=== PATIENT | male | born 1950 | race Caucasian/White ===

== ENCOUNTER 2016-06-14 13:22 | Emergency (ER) | payer MEDICARE, OTHER ==
[2016-06-14 13:31] VITALS: PULSE 73; RESP 16
--- NOTE | 2016-06-14 14:17 | ED ---
General Adult HPI - General Chief complaint: Chest Pain Stated complaint: Chest Pain Time Seen by Provider: 06/14/16 13:52 Source: patient, family, RN notes reviewed Mode of arrival: wheelchair Limitations: no limitations - History of Present Illness Initial comments: Chief complaint and history of present illness a 66-year-old male here because she's had discomfort on again off again to his left tricep area. Patient reports for the past 3 weeks he's had short lived discomfort on the left pectoralis muscle he states when he takes a deep breath or twists and turns and stretches out the pain goes away and stays away from hours. Denies any direct injury. He came in today because he does have a little discomfort to the left tricep area. On-again off-again a dull ache. No associated sweats or nausea with these occurrences. Patient denies any previous heart problems. - Related Data Home Medications Medication Instructions Recorded Confirmed Dipyridamole-Aspirin 200-25 mg 1 cap PO BID 06/14/16 06/14/16 [Aggrenox] Omeprazole 20 mg PO DAILY 06/14/16 06/14/16 Allergies Allergy/AdvReac Type Severity Reaction Status Date / Time No Known Allergies Allergy Verified 06/14/16 14:22 Review of Systems ROS Statement: Those systems with pertinent positive or pertinent negative responses have been documented in the HPI. Review of systems no visual acuity changes no headache no stiff neck no chest pain at this time no arm pain no discomfort no shortness of breath no neuro deficits no GI/ problems. All systems were otherwise reviewed were negative. Past medical problems significant for GERD, hyperlipidemia. Surgeries tonsils as a child. Family history sister had MS and a brother had colon cancer. The patient was told he needs colonoscopies which she is getting already. Patient denies any ALLERGIES he quit smoking a year ago quit alcohol 16 years ago. ROS Other: All systems not noted in ROS Statement are negative. Past Medical History Past Medical History: GERD/Reflux, Hyperlipidemia History of Any Multi-Drug Resistant Organisms: None Reported Past Surgical History: Heart Catheterization Additional Past Surgical History / Comment(s): THROAT POLYPS REMOVED Past Psychological History: Anxiety Smoking Status: Former smoker Past Alcohol Use History: None Reported Past Drug Use History: None Reported General Exam - General Exam Comments Initial Comments: General: The patient is awake and alert, in no distress, and does not appear acutely ill. No complaints this time. Vital signs show temperature 98.1 pulse 73 her story rate 16 pulse ox 99% room air blood pressure 137/70, elevated systolic noted patient will be following up with his family physician in next week. Eye: Pupils are equal, round and reactive to light, extra-ocular movements are intact ; there is normal conjunctiva bilaterally. No signs of icterus. Ears, nose, mouth and throat: There are moist mucous membranes and no oral lesions. Neck: The neck is supple, there is no tenderness , no carotid bruits. Cardiovascular: There is a regular rate and rhythm. No murmur, rub or gallop is appreciated. Respiratory: Lungs are clear to auscultation, respirations are non-labored, breath sounds are equal. No wheezes, stridor, rales, or rhonchi. Gastrointestinal: Soft, non-distended, non-tender abdomen without masses or organomegaly noted. There is no rebound or guarding present. No CVA tenderness. Bowel sounds are unremarkable. Back: There is no tenderness to palpation in the midline. There is no obvious deformity. No rashes noted. Musculoskeletal: Normal ROM, no tenderness, There is no pedal edema. There is no calf tenderness or swelling. Sensation intact. Pulses equal bilaterally 2+. Neurological: CN II-XII intact, There are no obvious motor or sensory deficits. Coordination appears grossly intact. Speech is normal. No focal or lateralizing findings Skin: Skin is warm and dry and no rashes or lesions are noted. He does bruise easily he is on Aggrenox. Limitations: no limitations Course Vital Signs 06/14/16 13:24 Temperature 98.1 F Pulse Rate 73 Respiratory 16 Rate Blood Pressure 137/70 O2 Sat by Pulse 99 Oximetry EKG Findings - EKG Comments: EKG Findings:: EKG was done and reviewed at 1337 showing normal sinus rhythm age undetermined lateral injury. No acute ST elevation no ectopy. Rate 64 AK interval was 132 QRS 108 [address] Claros Medical Decision Making - Medical Decision Making History x-ray is done AP view, portable. And reviewed radiologist his impression is the heart size is stable and there is no evidence for focal infiltrate. Hilar mediastinal structures are within normal limits. Degenerative changes are seen of the dorsal spine. Impression some chronic changes without evidence for acute pulmonary disease. As read by Dr. Fregoli Labs show white count 9.5 hemoglobin 15 hematocrit of 45 and INR 0.9. The patient's potassium is 4.2 with a BUN 13 creatinine 0.98 GFR greater than 60. CK only 65 troponin less than 0.012. Discussed musculoskeletal discomfort such as costochondritis. Patient is physically active. At this time the patient will be discharged home and advised to follow-up with his family physician for stress testing. If he develops any discomfort to return emergency room immediately. - Lab Data Result diagrams: 06/14/16 14:27 06/14/16 14:27 Lab Results 06/14/16 06/14/16 06/14/16 Range/Units 14:27 14:27 14:27 WBC 9.5 (3.8-10.6) k/uL RBC 5.07 (4.30-5.90) m/uL Hgb 15.1 (13.0-17.5) gm/dL Hct 45.8 (39.0-53.0) % MCV 90.3 (80.0-100.0) fL MCH 29.7 (25.0-35.0) pg MCHC 32.9 (31.0-37.0) g/dL RDW 13.0 (11.5-15.5) % Plt Count 159 (150-450) k/uL Neutrophils % 66 % Lymphocytes % 22 % Monocytes % 6 % Eosinophils % 4 % Basophils % 1 % Neutrophils # 6.3 (1.3-7.7) k/uL Lymphocytes # 2.1 (1.0-4.8) k/uL Monocytes # 0.6 (0-1.0) k/uL Eosinophils # 0.4 (0-0.7) k/uL Basophils # 0.1 (0-0.2) k/uL PT (9.0-12.0) sec INR (<1.1) APTT (22.0-30.0) sec Sodium 142 (137-145) mmol/L Potassium 4.2 (3.5-5.1) mmol/L Chloride 101 (98-107) mmol/L Carbon Dioxide 31 H (22-30) mmol/L Anion Gap 10 mmol/L BUN 13 (9-20) mg/dL Creatinine 0.98 (0.66-1.25) mg/dL Est GFR (MDRD) Af Amer >60 (>60 ml/min/1.73 sqM) Est GFR (MDRD) Non-Af >60 (>60 ml/min/1.73 sqM) Glucose 77 (74-99) mg/dL Calcium 9.4 (8.4-10.2) mg/dL Magnesium 2.1 (1.6-2.3) mg/dL Total Bilirubin 0.4 (0.2-1.3) mg/dL AST 14 L (17-59) U/L ALT 28 (21-72) U/L Alkaline Phosphatase 58 (38-126) U/L Total Creatine Kinase 65 (55-170) U/L CK-MB (CK-2) 0.8 (0.0-2.4) ng/mL CK-MB (CK-2) Rel Index 1.2 Troponin I <0.012 (0.000-0.034) ng/mL Total Protein 6.9 (6.3-8.2) g/dL Albumin 4.4 (3.5-5.0) g/dL 06/14/16 Range/Units 14:27 WBC (3.8-10.6) k/uL RBC (4.30-5.90) m/uL Hgb (13.0-17.5) gm/dL Hct (39.0-53.0) % MCV (80.0-100.0) fL MCH (25.0-35.0) pg MCHC (31.0-37.0) g/dL RDW (11.5-15.5) % Plt Count (150-450) k/uL Neutrophils % % Lymphocytes % % Monocytes % % Eosinophils % % Basophils % % Neutrophils # (1.3-7.7) k/uL Lymphocytes # (1.0-4.8) k/uL Monocytes # (0-1.0) k/uL Eosinophils # (0-0.7) k/uL Basophils # (0-0.2) k/uL PT 9.7 (9.0-12.0) sec INR 0.9 (<1.1) APTT 23.8 (22.0-30.0) sec Sodium (137-145) mmol/L Potassium (3.5-5.1) mmol/L Chloride (98-107) mmol/L Carbon Dioxide (22-30) mmol/L Anion Gap mmol/L BUN (9-20) mg/dL Creatinine (0.66-1.25) mg/dL Est GFR (MDRD) Af Amer (>60 ml/min/1.73 sqM) Est GFR (MDRD) Non-Af (>60 ml/min/1.73 sqM) Glucose (74-99) mg/dL Calcium (8.4-10.2) mg/dL Magnesium (1.6-2.3) mg/dL Total Bilirubin (0.2-1.3) mg/dL AST (17-59) U/L ALT (21-72) U/L Alkaline Phosphatase (38-126) U/L Total Creatine Kinase (55-170) U/L CK-MB (CK-2) (0.0-2.4) ng/mL CK-MB (CK-2) Rel Index Troponin I (0.000-0.034) ng/mL Total Protein (6.3-8.2) g/dL Albumin (3.5-5.0) g/dL Disposition Clinical Impression: Costochondritis Disposition: HOME SELF-CARE Condition: Good Instructions: Costochondritis (ED) Additional Instructions: Follow-up with your family physician for stress test. Use Tylenol for discomfort or ibuprofen over [place] take that. Gentle stretching for release of the discomfort. Return emergency room if there is any changes whatsoever. Time of Disposition: 15:18
--- NOTE | 2016-06-14 14:22 | XR ---
EXAMINATION TYPE: XR chest 1V portable DATE OF EXAM: 06/14/2016 2:17 PM HISTORY: Shortness of breath. COMPARISON: January 17, 2014 TECHNIQUE: Single view of the chest is submitted. FINDINGS: Demonstrated are scattered senescent parenchymal change. There is no evidence for focal infiltrate. The heart is stable. Hilar and mediastinal structures are within normal limits. Degenerative changes are seen of the dorsal spine. IMPRESSION: 1. Chronic changes without evidence for acute pulmonary disease.
[2016-06-14 14:42] LABS: Basophils # (A) 0.1 k/uL (0-0.2); Basophils % (A) 1 %; CH 30.4; CHCM 33.8; Eosinophils # (A) 0.4 k/uL (0-0.7); Eosinophils % (A) 4 %; HCT 45.8 % (39.0-53.0); HDW 2.55; HGB 15.1 gm/dL (13.0-17.5); Luc # (Auto) 0.13; Luc % (Auto) 1; Lymphocytes # (A) 2.1 k/uL (1.0-4.8); Lymphocytes % (A) 22 %; MCH 29.7 pg (25.0-35.0); MCHC 32.9 g/dL (31.0-37.0); MCV 90.3 fL (80.0-100.0); Mean Platelet Volume 7.4; Monocytes # (A) 0.6 k/uL (0-1.0); Monocytes % (A) 6 %; Neutrophils # (A) 6.3 k/uL (1.3-7.7); Neutrophils % (A) 66 %; RBC 5.07 m/uL (4.30-5.90); WBC 9.5 k/uL (3.8-10.6); WBC (Perox) 9.78
[2016-06-14 14:50] LABS: INR 0.9 (<1.1); Partial Thromboplastin Time 23.8 sec (22.0-30.0); Prothrombin Time 9.7 sec (9.0-12.0)
[2016-06-14 14:58] LABS: ALT 28 U/L (21-72); AST 14 U/L (17-59); Alkaline Phosphatase 58 U/L (38-126); Anion Gap 10 mmol/L; Blood Urea Nitrogen 13 mg/dL (9-20); Calcium 9.4 mg/dL (8.4-10.2); Carbon Dioxide 31 mmol/L (22-30); Chloride 101 mmol/L (98-107); Glucose 77 mg/dL (74-99); Magnesium 2.1 mg/dL (1.6-2.3); Non-African American GFR(MDRD) >60 (>60 ml/min/1.73 sqM); Potassium 4.2 mmol/L (3.5-5.1); Sodium 142 mmol/L (137-145); Total Bilirubin 0.4 mg/dL (0.2-1.3); Total Protein 6.9 g/dL (6.3-8.2)
[2016-06-14 15:02] LABS: Creatine Kinase 65 U/L (55-170)
[2016-06-14 15:15] LABS: Creatine Kinase MB 0.8 ng/mL (0.0-2.4); Troponin I <0.012 ng/mL (0.000-0.034)
[2016-06-14 15:50] VITALS: BP 132/83; TEMP 97.3
== END 2016-06-14 16:04 | disposition home or self-care (01) ==
LOC: EC 13:22
DX: M94.0 Chondrocostal junction syndrome [Tietze] (principal); K21.9 Gastro-esophageal reflux disease without esophagitis; Z79.82 Long term (current) use of aspirin; Z87.891 Personal history of nicotine dependence
CPT/HCPCS: 36415; 71010; 80053; 82550; 82553; 83735; 84484; 85025; 85610; 85730; 93005; 99285

== ENCOUNTER 2016-10-03 17:13 | Emergency (ER) | payer MEDICARE, OTHER ==
[2016-10-03 17:29] VITALS: BP 161/75; PULSE 69; RESP 16; TEMP 97.6
[2016-10-03] MEDS ORDERED: DIPH,PERTUS(ACELL)TETVAC-LF 0.5 ML VIAL IM ONE (18:13)
--- NOTE | 2016-10-03 18:16 | ED ---
Wound/Laceration HPI - General Chief Complaint: Wound/Laceration Stated Complaint: laceration left thumb Time Seen by Provider: 10/03/16 17:44 Source: patient Mode of arrival: ambulatory Limitations: no limitations - History of Present Illness Initial Comments: Patient is a 66-year-old right-handed white male presenting to the emergency department with complaints of laceration to his left thumb. Patient states he was opening a package of steak when he cut his thumb with a knife. Onset of injury approximately one hour prior to arrival. Patient states he became concerned because he is on blood thinners and it took a long time to stop bleeding. Onset/Timin -: hour(s) Extremity Location: Left: Hand (2 cm laceration to radial aspect of left thumb just adjacent to nail), Right: Thigh Place: home Patient Tetanus UTD: No Context: accidental, sharp object use Associated Symptoms: pain (Patient complains of a throbbing sharp pain currently rated 3 out of 10. Patient denies need for pain medication at this time.) Treatments Prior to Arrival: bandage - Related Data Home Medications Medication Instructions Recorded Confirmed Dipyridamole-Aspirin 200-25 mg 1 cap PO BID 06/14/16 06/14/16 [Aggrenox] Omeprazole 20 mg PO DAILY 06/14/16 06/14/16 Previous Rx's Medication Instructions Recorded Cephalexin [Keflex] 500 mg PO Q6HR #28 cap 10/03/16 Allergies Allergy/AdvReac Type Severity Reaction Status Date / Time No Known Allergies Allergy Verified 10/03/16 17:29 Review of Systems ROS Statement: Those systems with pertinent positive or pertinent negative responses have been documented in the HPI. ROS Other: All systems not noted in ROS Statement are negative. Past Medical History Past Medical History: GERD/Reflux, Hyperlipidemia History of Any Multi-Drug Resistant Organisms: None Reported Past Surgical History: Heart Catheterization Additional Past Surgical History / Comment(s): THROAT POLYPS REMOVED Past Psychological History: Anxiety Smoking Status: Former smoker Past Alcohol Use History: None Reported Past Drug Use History: None Reported General Exam Limitations: no limitations General appearance: alert, in no apparent distress Head exam: Present: atraumatic, normocephalic, normal inspection Eye exam: Present: normal appearance ENT exam: Present: normal exam, mucous membranes moist, TM's normal bilaterally , normal external ear exam Neck exam: Present: normal inspection, full ROM Respiratory exam: Present: normal lung sounds bilaterally. Absent: respiratory distress, wheezes, rales, rhonchi, stridor Cardiovascular Exam: Present: regular rate, normal rhythm, normal heart sounds. Absent: systolic murmur, diastolic murmur, rubs, gallop, clicks GI/Abdominal exam: Present: soft, normal bowel sounds. Absent: distended, tenderness, guarding, rebound, rigid Left Forearm Wrist exam: Present: normal inspection, full ROM. Absent: tenderness, swelling Hand Wrist exam: Present: full ROM, tenderness, swelling, laceration (2 cm linear laceration to left thumb radial aspect adjacent to nail.) Neuro motor exam: Present: wrist extension intact, thumb opposition intact, thumb IP flexion intact, thumb adduction intact, fingers 2-5 abduction intact Neurosensory exam: Present: 2-point discrimination, radial nerve intact, ulnar nerve intact, median nerve intact Vascular: Present: radial pulse, brachial pulse, ulnar pulse. Absent: vascular compromise Neurological exam: Present: alert, oriented X3, normal gait, other (No focal deficits noted.) Psychiatric exam: Present: normal affect, normal mood Skin exam: Present: warm, dry, normal color Course Vital Signs 10/03/16 17:26 Temperature 97.6 F Pulse Rate 69 Respiratory 16 Rate Blood Pressure 161/75 O2 Sat by Pulse 98 Oximetry Procedures - Laceration Laceration #1 Consent Obtained: verbal consent Time Out Performed: No Indication: laceration Site: hand (Left thumb) Size (cm): 2 Description: linear Depth: simple, single layer Anesthetic Used: lidocaine 1% Anesthesia Technique: local infiltration Amount (mls): 1 Pre-repair: wound explored, irrigated extensively, deep structures intact Type of Sutures: nylon Size of Sutures: 5-0 Number of Sutures: 3 Technique: simple, interrupted Patient Tolerated Procedure: well, no complications Medical Decision Making - Medical Decision Making Laceration to left thumb. Laceration repaired. Patient tolerated procedure well. Discharge instructions and return parameters reviewed. Patient instructed to return to the emergency department with new or worsening symptoms. Disposition Clinical Impression: Laceration of left thumb without complication Disposition: HOME SELF-CARE Condition: Good Instructions: Care For Your Stitches (ED), Finger Laceration (ED) Additional Instructions: Postop wound care: Keep wound dry and clean for 24 hours; if dressing accidentally becomes wet, chains dressing immediately. Gently clean the edges of the wound daily with a cotton swab saturated with peroxide to remove crust. Return immediately if signs of infection occur such as redness or red streaks progressing up and extremity, increasing pain, swelling, or fevers. Finish oral antibiotics as prescribed. Please return for suture removal in 7 days or sooner if complications. Please return to the emergency department if symptoms do not improve or get worse. Prescriptions: Cephalexin [Keflex] 500 mg PO Q6HR #28 cap Referrals: Ish Flores DO [Primary Care Provider] - 1-2 days Time of Disposition: 18:15
== END 2016-10-03 18:44 | disposition home or self-care (01) ==
LOC: EC 17:13
DX: S61.012A Laceration without foreign body of left thumb without damage to nail, initial encounter (principal); K21.9 Gastro-esophageal reflux disease without esophagitis; Z23 Encounter for immunization; Z87.891 Personal history of nicotine dependence; Z79.82 Long term (current) use of aspirin; Z79.899 Other long term (current) drug therapy; W26.0XXA Contact with knife, initial encounter; Y93.89 Activity, other specified
CPT/HCPCS: 12001; 90471; 90715; 99282

== ENCOUNTER → 2017-03-16 | Outpatient (CLI) | payer OTHER ==
--- NOTE | 2017-03-16 10:06 | US ---
EXAMINATION TYPE: US carotid duplex BILAT DATE OF EXAM: 03/16/2017 COMPARISON: NONE CLINICAL HISTORY: 67-year-old male U73.9 PVD. TECHNIQUE: Carotid duplex ultrasound examination. Direct Doppler criteria was utilized. FINDINGS: Corona scale images show mild atherosclerotic changes at both bifurcations. EXAM MEASUREMENTS: RIGHT: Peak Systolic Velocity (PSV) cm/sec ----- Right CCA: 82.0 ----- Right ICA: 97.5 ----- Right ECA: 93.1 ICA/CCA ratio: 1.2 RIGHT: End Diastole cm/sec ----- Right CCA: 27.0 ----- Right ICA: 35.9 ----- Right ECA: 10.6 LEFT: Peak Systolic Velocity (PSV) cm/sec ----- Left CCA: 95.4 (proximal CCA: 133.5 cm/s) ----- Left ICA: 124.4 ----- Left ECA: 78.4 ICA/CCA ratio: 1.3 LEFT: End Diastole cm/sec ----- Left CCA: 29.9 ----- Left ICA: 46.6 ----- Left ECA: 10.0 VERTEBRALS (direction of flow): Right Vertebral: Antegrade Left Vertebral: Antegrade Rhythm: Normal IMPRESSION: 1. No hemodynamically significant stenosis appreciated in either internal carotid artery. 2. Mildly elevated velocities in the lower left common carotid artery could reflect a mild to moderat e proximal stenosis at its arch origin. Criteria for Assigning % of Stenosis / Diameter reduction (Estimation based on the indirect measurements of the internal carotid artery velocities (ICA PSV). 1. Normal (no stenosis)=ICA PSV < 125 cm/s: ratio < 2.0: ICA EDV<40 cm/s. 2. Less than 50% stenosis=ICA PSV < 125 cm/s: ratio < 2.0: ICA EDV<40 cm/s. 3. 50 to 69% stenosis=ICA PSV of 125 to 230 cm/s: ration 2.0 ? 4.0: ICA EDV 40-100 cm/s. 4. Greater than 70% stenosis to near occlusion= ICA PSV > 230 cm/s: ratio > 4.0: ICA EDV > 100 cm/s. 5. Near occlusion= ICA PSV velocities may be low or undetectable: variable ratio and ICA EDV. 6. Total occlusion=unable to detect flow.
--- NOTE | 2017-03-16 10:41 | EST ---
EXERCISE STRESS DATE OF SERVICE: 03/16/2017 AGE: 67 SEX: Male HT: 5'8" WT: 153 pounds PROTOCOL: Frankie, Cardiolite STAGE: III DURATION OF EXERCISE: 7-1/2 minutes HEART RATE REST: 72 BLOOD PRESSURE REST: 124/71 MAXIMUM HEART RATE ACHIEVED: 125 MAXIMUM BLOOD PRESSURE: 183/111 85% MPHR: 129 100% MPHR: 152 METS: 8 INDICATIONS: Chest pain. CLINICAL INFORMATION: Baseline EKG shows sinus rhythm, normal axis, normal intervals. Patient exercised on Frankie protocol for a total of 7-1/2 minutes achieving 8 METs, 78% of predicted maximal heart rate without chest pain or diagnostic ST-segment depression. CONCLUSIONS: 1. Average exercise tolerance. 2. Inconclusive EKG part of the stress test due to inability to attain target heart rate. 3. Cardiolite portion of this stress test will be reported separately. MMMICHAELL / IJN: [id number] /
--- NOTE | 2017-03-16 11:03 | NM ---
EXAMINATION TYPE: NM stress cardiolite complete DATE OF EXAM: 03/16/2017 COMPARISON: NONE HISTORY: 67-year-old male peripheral vascular disease, chest pain, and history of clots in legs. TECHNIQUE: After the intravenous administration of 10.8 mCi Tc 99m Sestamibi - Rest images obtained 45 minutes post injection. The patient exercised using a OSVALDO protocol and 1 minute prior to peak exercise was injected with 27.9 mCi Tc 99m Sestamibi - Stress images obtained 15 minutes post injecti on. FINDINGS: Targeted heart rate was not achieved during performance of the study. Target heart rate was 129 BPM w ith max heart rate achieved measured at 120bpm. Review of stress and rest SPECT images demonstrates decreased perfusion along the inferior wall on lam th rest and stress imaging. Some adjacent GI activity is present. Otherwise, no distinct perfusion ab normality. Gated analysis shows normal augmentation of the inferior wall and normal wall motion with an estimated left ventricular ejection fraction of 58 %. TID is calculated at 0.88, within normal l imits. IMPRESSION: No scintigraphic evidence for reversible ischemia. However, note that the exercise stress was subopti mal. Further evaluation as clinically indicated.
== END | disposition home or self-care (01) ==
LOC: RADNMMAIN 08:01
PROVIDERS: ATTEND Family Medicine
DX: I73.9 Peripheral vascular disease, unspecified (principal)
CPT/HCPCS: 93017; 93880; 78452; A9500

== ENCOUNTER 2019-05-16 12:11 | Day surgery (SDC) | payer MEDICARE, OTHER ==
[2019-05-14 16:16] VITALS: BMI 24.3
[~2019-05-16 12:11] MED LIST: ALPRAZolam 0.25 MG TAB PO PRN; ASPIRIN 325 MG TAB PO ONE; SODIUM CHLORIDE 0.9% 1,000 ML in EMPTY BAG 1 BAG IV ONE; ZOLPIDEM 5 MG TAB PO PRN
[2019-05-16] MEDS ORDERED: MIDAZOLAM 2 MG/2 ML VIAL IV ONE (14:49)
[2019-05-16] MEDS ORDERED: LIDOCAINE 1% INJ 10MG/ML (20 ML MDV) SQ ONE (14:50)
[2019-05-16] MEDS ORDERED: IOPAMIDOL-250 100ML BTL INTRAARTER ONE (14:59)
[2019-05-16] MEDS ORDERED: SODIUM CHLORIDE 0.9% 1,000 ML IV SCH (15:15)
[2019-05-16 18:00] VITALS: RESP 18; TEMP 96
[2019-05-16 20:11] VITALS: BP 115/64; PULSE 85
--- NOTE | 2019-05-16 21:55 | AN ---
ANGIOGRAPHY REPORT ABDOMINAL AORTOGRAM AND BILATERAL LOWER EXTREMITY RUNOFF: DATE OF SERVICE: 05/16/2019 PERFORMING PHYSICIAN: Kaz Hu M.D. PROCEDURES PERFORMED: 1. Abdominal aortogram. 2. Bilateral lower extremity runoff. INDICATION: This is a pleasant 69-year-old gentleman who sees Dr. Hawley in the office as an outpatient with history of dyslipidemia and significant history of smoking who was experiencing bilateral lower extremity intermittent claudication. He underwent an arterial duplex study that showed occluded right SFA and severe disease involving the left SFA. He was brought today to undergo an aortogram with runoff. APPROACH: Right common femoral artery. COMPLICATIONS: None. LEVEL OF SEDATION: Moderate, with sedation length of 13 minutes. PROCEDURE DESCRIPTION: After obtaining informed consent, the patient was brought to the cardiac manager cath lab. The right common femoral artery was cannulated using micropuncture technique. The micropuncture wire passed easily. Then I placed a 5-Sami sheath 11 cm at the right common femoral artery. After that I did an aortogram with runoff using 5-Sami pigtail catheter which was initially placed at the level of the renal arteries. Then it was pulled to above the bifurcation of the aorta to right and left common iliac arteries. The procedure was completed without any complication. SELECTIVE PERIPHERAL ANGIOGRAM: 1. The aorta is calcified with mild disease only. 2. Both renal arteries appear to be patent. 3. Both common iliac arteries appear to be normal. 4. Both internal iliac arteries appear to be patent. 5. Both external iliac arteries appear to be angiographically normal. 6. Both common femoral arteries appear to have mild disease only. 7. Both profundae appear to be patent. 8. The right SFA is occluded on a long segment that extends from the proximal portion and reconstitutes distally by the Tom canal. The left SFA appears to have a tight lesion in the distal portion. 9. Both popliteals appear to have mild disease only. 10.Below the knee bilaterally there is 3-vessel runoff. 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 POST-PROCEDURE MANAGEMENT: The patient will be scheduled to undergo a MARKET DEVELOPMENT MANAGER of the right and left SFA. MMODL / IJN: [id number] /
== END 2019-05-16 20:15 | disposition home or self-care (01) ==
LOC: CATHCVL 12:11 → 1SOBS 15:00 → CATHCVL 20:15
PROVIDERS: ATTEND Internal Medicine Interventional Cardiology
DX: I70.213 Atherosclerosis of native arteries of extremities with intermittent claudication, bilateral legs (principal); E78.2 Mixed hyperlipidemia; F17.210 Nicotine dependence, cigarettes, uncomplicated; Z79.82 Long term (current) use of aspirin; Z79.899 Other long term (current) drug therapy
CPT/HCPCS: 36200; 75625; 75716; C1894; C1769 ×3; J2250; J2001; Q9966

== ENCOUNTER → 2019-06-05 | Outpatient (CLI) | payer OTHER ==
--- NOTE | 2019-06-05 08:49 | MR ---
EXAMINATION TYPE: MR brain wo/w con DATE OF EXAM: 06/05/2019 COMPARISON: HISTORY: Memory difficulty TECHNIQUE: Multiplanar, multisequence images of the brain and brainstem is performed without and with IV contras t, utilizing 7 mL intravenous Gadavist . FINDINGS: Diffusion weighted images demonstrate no evidence of a recent infarct or other diffusion ab normality. There is a [id number] generalized degenerative change. There is diffuse confluent as well as numerous focal areas of abnormal signal surrounding the white matter bilaterally. No midline shift. Midline structures demonstrate normal morphology. The craniocervical junction appears within normal limits. Post contrast images demonstrate no abnormal enhancement. The dural venous sinuses appear pa tent. The visualized sinuses demonstrate mild chronic sinusitis and nasal septal deviation and the gl obes are intact. IMPRESSION: 1. Degenerative and diffuse nonspecific white matter changes most typical of diffuse remote microvasc ular white matter ischemia.
== END | disposition home or self-care (01) ==
LOC: RADMRIMAIN 07:58
PROVIDERS: ATTEND Physician Assistant Medical
DX: G31.89 Other specified degenerative diseases of nervous system (principal); I67.82 Cerebral ischemia
CPT/HCPCS: 70553

== ENCOUNTER 2019-07-04 09:23 | Day surgery (SDC) | payer MEDICARE, OTHER ==
[2019-06-29 15:20] VITALS: BMI 24.5
[~2019-07-04 09:23] MED LIST changes: -ZOLPIDEM 5 MG TAB PO PRN
[2019-07-04 10:03] LABS: Basophils # (A) 0.1 k/uL (0-0.2); Basophils % (A) 1 %; Eosinophils # (A) 0.7 k/uL (0-0.7); Eosinophils % (A) 6 %; HCT 50.3 % (39.0-53.0); HGB 16.3 gm/dL (13.0-17.5); Lymphocytes # (A) 2.3 k/uL (1.0-4.8); Lymphocytes % (A) 21 %; MCH 30.3 pg (25.0-35.0); MCHC 32.5 g/dL (31.0-37.0); MCV 93.4 fL (80.0-100.0); Mean Platelet Volume 7.1; Monocytes # (A) 0.5 k/uL (0-1.0); Monocytes % (A) 5 %; Neutrophils # (A) 7.2 k/uL (1.3-7.7); Neutrophils % (A) 65 %; Platelet Count 159 k/uL (150-450); RBC 5.39 m/uL (4.30-5.90); RDW 12.1 % (11.5-15.5); WBC 10.9 k/uL (3.8-10.6)
[2019-07-04 10:17] LABS: Anion Gap 7 mmol/L; Blood Urea Nitrogen 15 mg/dL (9-20); Calcium 9.2 mg/dL (8.4-10.2); Carbon Dioxide 32 mmol/L (22-30); Chloride 102 mmol/L (98-107); Glucose 89 mg/dL (74-99); Potassium 4.4 mmol/L (3.5-5.1); Sodium 141 mmol/L (137-145)
[2019-07-04 10:19] LABS: African American GFR (CKD) >90 (>60 ml/min/1.73 sqM); Non-African American GFR(CKD) 88 (>60 ml/min/1.73 sqM)
[2019-07-04] MEDS ORDERED: MIDAZOLAM 2 MG/2 ML VIAL IV ONE (12:26)
[2019-07-04] MEDS ORDERED: LIDOCAINE 1% INJ 10MG/ML (20 ML MDV) SQ ONE (12:45)
[2019-07-04] MEDS ORDERED: HEPARIN SODIUM 1,000 UN/ML (10ML VL) IV ONE ×2 (12:49→14:20)
[2019-07-04] MEDS ORDERED: VERAPAMIL SYRINGE (5 MG/10 ML) INTRAARTER ONE (12:49)
[2019-07-04] MEDS ORDERED: SODIUM CHLORIDE 0.9% 1,000 ML IV ONE (14:04)
[2019-07-04] MEDS ORDERED: HYDROmorphone 1 MG/ML 1 ML SYRINGE IVP ONE (14:16)
[2019-07-04] MEDS ORDERED: MIDAZOLAM 2 MG/2 ML VIAL IVP ONE (14:16)
[2019-07-04] MEDS ORDERED: SODIUM CHLORIDE 0.9% 500 ML 500 ML with niCARdipine 6.25 MG, NITROGLYCERIN-D5W PMX 0.05... IV ONE ×4 (14:30)
[2019-07-04] MEDS ORDERED: ONDANSETRON 4 MG/2 ML VIAL IVP ONE (14:46)
[2019-07-04] MEDS ORDERED: METOPROLOL TARTRATE 5 MG/5 ML VIAL IVP ONE (14:46)
[2019-07-04] MEDS ORDERED: IOPAMIDOL-300 100ML BTL INJ ONE (15:14)
[2019-07-04] MEDS ORDERED: NITROGLYCERIN 1000MCG/10ML SYRINGE INTRACORON ONE (15:14)
[2019-07-04] MEDS ORDERED: NITROGLYCERIN 1000MCG/10ML SYRINGE INTRAARTER ONE (15:47)
[2019-07-04] MEDS ORDERED: niCARdipine Syringe (1,000 mcg/10 mL) INTRAARTER ONE (15:48)
[2019-07-04] MEDS ORDERED: IOPAMIDOL-250 100ML BTL INTRAARTER ONE (16:09)
[2019-07-04] MEDS ORDERED: CLOPIDOGREL 75 MG TAB PO ONE (16:12)
[2019-07-04] MEDS ORDERED: SODIUM CHLORIDE 0.9% 1,000 ML in EMPTY BAG 1 BAG IV SCH (17:00)
[2019-07-04] MEDS ORDERED: ACETAMINOPHEN TAB 325 MG TAB PO PRN (19:02)
[2019-07-04] MEDS: DIPYRIDAMOLE-ASPIRIN 200-25 MG 1 EACH CPMP.12HR PO SCH (20:09)
[2019-07-04] MEDS ORDERED: ATORVASTATIN 10 MG TAB PO SCH (21:00)
--- NOTE | 2019-07-04 23:56 | PCN ---
PROCEDURE NOTE DATE OF SERVICE: 07/04/2019 PERFORMING PHYSICIAN: Kaz Hu MD. PROCEDURES PERFORMED: 1. Right lower extremity angiogram. 2. 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 3. Intravascular ultrasound (IVUS) of the right SFA as well as right popliteal. 4. Successful balloon angioplasty of the right popliteal. 5. Successful stenting of the right SFA using self-expandable stent with an excellent angiographic result. INDICATION: This is a 69-year-old gentleman with history of hypertension and dyslipidemia who was experiencing right leg intermittent claudication and underwent a peripheral angiogram that revealed occluded right SFA on a long segment and also calcified SFA. Because of that, he was brought today to undergo an intervention on the right SFA. APPROACH: Right radial artery as well as right posterior tibial artery. COMPLICATIONS: None. LEVEL OF SEDATION: Moderate, with sedation length of 200 minutes. PROCEDURE DESCRIPTION: After obtaining informed consent, the patient was brought to the cardiac semiconductor lab technician. The right radial artery was cannulated using micropuncture technique. The micropuncture wire passed easily. Then I placed initially a 6-Sammarinese 11 cm sheath at the right radial artery. After that I gave the patient 2 mg of verapamil IA and anticoagulation was initiated with heparin with continuous ACT monitoring throughout the procedure. Subsequently I did advance an 0.035 wire from the right radial sheath all the way to the descending aorta and the wire was advanced to the right iliac artery. Over the 0.035 wire I was able to exchange my 11 cm 6-Sammarinese sheath for an 120 cm 6-Sammarinese sheath, which was a Destination sheath from [employer]. The sheath was advanced all the way to the hub of it, and the tip of it was at the level of the right external iliac artery. At that point, I did right lower extremity angiogram and that revealed mild iliac disease with mild common femoral artery disease with wide open profunda and occluded right SFA on a long segment with mild to moderate disease involving the right popliteal as well as two-vessel runoff below the knee with posterior tibial and peroneal. 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 I attempted that using an 0.018 land-tip Glidewire as well as an 0.018 wire. After that I attempted using an 0.035 stiff Glidewire, and with that I was unsuccessful. I ended in the subintimal space of the right popliteal artery. Because of that, I aborted the antegrade technique and I decided to access the right posterior tibial artery to attempt crossing the RN SURGERY ICU in retrograde technique. Having said that, I did access the right posterior tibial artery using ultrasound guidance and I placed a slender 5/6-Sammarinese at the right posterior tibial artery. 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 I did inject contrast through the CXI catheter in the right external iliac artery to prove that I was in the true lumen. After that I did intravascular ultrasound of the right SFA and right popliteal. The intravascular ultrasound revealed that for the majority of the SFA length I was in the true lumen, while I was only in subintimal space by the proximal cap. The right popliteal revealed moderate disease with subintimal space because of the dissection from the 0.035 wire from antegrade approach. Also the intravascular ultrasound revealed the diameter of the SFA about 7 mm and the popliteal about 6.5 mm. Subsequently I did atherectomy of the right SFA after I advanced an 0.014 ViperWire. Atherectomy was performed using the orbital atherectomy device from [facility]. After that I did balloon angioplasty of the right SFA using a 5 mm chocolate balloon, and it was 5 x 120 mm chocolate balloon. The following angiogram showed multiple areas of dissection in the right SFA, which seems to be flow-limiting. Because of that I decided to cover that with a stent. Proximally I placed a 7 x 140 mm and in the distal portion I placed another 7 x 140 mm self-expandable stent. I post-dilated both stents using 6 mm balloon. The final angiogram in the right SFA showed excellent angiographic results. For the right popliteal, I did drug-coated balloon which was 5 mm x 120 which was inflated under 10 atmospheres for 3 minutes. The following angiogram showed good angiographic results. There were 2 small spots of kkd-kwkp-lcejdkid dissection. One of them was distal to the distal stent in the right SFA and the second one was at the level of the P2 of the popliteal. I decided to leave them alone because the dissection is not flow-limiting over small segments. After that I did pull the long radial sheath after I advanced the 0.035 wire and the dilator of the sheath inside. I did place a TR band. The right posterior tibial artery sheath was also pulled with 10 mm manual pressure and TR band placed as well. At that point, the procedure was completed without any complication. The patient at that point was going to be transferred to the extended-stay unit floor. POST-PROCEDURE MANAGEMENT: 1. Dual anti-platelet therapy. 2. Risk factor modifications. 3. Follow up with the patient. MMODL / IJN: [id number] /
[2019-07-05 07:11] LABS: Basophils # (A) 0.1 k/uL (0-0.2); Basophils % (A) 0 %; Eosinophils # (A) 0.2 k/uL (0-0.7); Eosinophils % (A) 1 %; HCT 42.3 % (39.0-53.0); HGB 14.1 gm/dL (13.0-17.5); Lymphocytes # (A) 1.3 k/uL (1.0-4.8); Lymphocytes % (A) 10 %; MCH 30.9 pg (25.0-35.0); MCHC 33.4 g/dL (31.0-37.0); MCV 92.6 fL (80.0-100.0); Mean Platelet Volume 7.1; Monocytes # (A) 0.7 k/uL (0-1.0); Monocytes % (A) 5 %; Neutrophils # (A) 10.4 k/uL (1.3-7.7); Neutrophils % (A) 82 %; Platelet Count 119 k/uL (150-450); RBC 4.57 m/uL (4.30-5.90); RDW 12.2 % (11.5-15.5); WBC 12.8 k/uL (3.8-10.6)
[2019-07-05 07:22] LABS: African American GFR (CKD) >90 (>60 ml/min/1.73 sqM); Anion Gap 6 mmol/L; Blood Urea Nitrogen 11 mg/dL (9-20); Calcium 8.6 mg/dL (8.4-10.2); Carbon Dioxide 29 mmol/L (22-30); Chloride 104 mmol/L (98-107); Glucose 85 mg/dL (74-99); Non-African American GFR(CKD) >90 (>60 ml/min/1.73 sqM); Sodium 139 mmol/L (137-145)
[2019-07-05] MEDS ORDERED: PANTOPRAZOLE 40 MG TABLET PO SCH (07:30)
[2019-07-05] MEDS: DIPYRIDAMOLE-ASPIRIN 200-25 MG 1 EACH CPMP.12HR PO SCH (08:42)
[2019-07-05 08:48] VITALS: BP 117/64; PULSE 80; RESP 18; TEMP 98.5
[2019-07-05] MEDS ORDERED: NON FORMULARY DRUG (Omega-3 Fatty Acids/Fish Oil [Fish Oil 1,000 Mg Softgel] 1 EACH) PO SCH (09:00)
[2019-07-05] MEDS ORDERED: ASPIRIN 325 MG TAB PO SCH (09:00)
[2019-07-05] MEDS ORDERED: CLOPIDOGREL 75 MG TAB PO SCH (09:00)
--- NOTE | 2019-07-05 09:00 | IR ---
Fluoroscopy HISTORY: Pain in right leg 69.9 minutes fluoroscopy time supplied to the referring clinician. 449 intraoperative C-arm images d ocument the procedure. See dictated report from cardiology.
--- NOTE | 2019-07-05 09:06 | DS ---
DISCHARGE SUMMARY ADMISSION DATE: July 04, 2019. DISCHARGE DATE: July 05, 2019. BRIEF HISTORY: This is a very pleasant 69-year-old gentleman who underwent yesterday complex chronic complex opening chronic total occlusion of the right superficial femoral artery with an excellent angiographic results by the end and without any complication from right radial and right posterior tibial approach. The procedure was completed without any complication. The patient was seen this morning. He is feeling good. He does have warm right foot. The right radial pulse is good. He is going to be discharged on dual anti-platelet therapy as well as statin and I will follow up with the patient next week in the office. MMODL / IJN: [id number] /
== END 2019-07-05 09:45 | disposition home or self-care (01) ==
LOC: CATHCVL 09:23 → 3SCARD 18:12 → CATHCVL 07-05 09:45
PROVIDERS: ATTEND Internal Medicine Interventional Cardiology
DX: I70.211 Atherosclerosis of native arteries of extremities with intermittent claudication, right leg (principal); I70.92 Chronic total occlusion of artery of the extremities; I10 Essential (primary) hypertension; E78.2 Mixed hyperlipidemia; F17.210 Nicotine dependence, cigarettes, uncomplicated; Z79.82 Long term (current) use of aspirin; Z79.899 Other long term (current) drug therapy
CPT/HCPCS: 37227; 37252; 80048 ×2; 85025 ×2; C1894; C1769 ×6; C1714; C1725 ×3; C1753; C2623; C1874; C1887; C1876; J2250; J1644 ×2; J2405; J2001; J1170; Q9966; Q9967; 37253

== ENCOUNTER 2019-07-18 07:18 | Day surgery (SDC) | payer OTHER ==
[2019-07-17 08:42] VITALS: BMI 25.8
[2019-07-18] MEDS ORDERED: SODIUM CHLORIDE 0.9% 500 ML 500 ML with niCARdipine 6.25 MG, NITROGLYCERIN-D5W PMX 0.05... IV ONE ×4 (09:25)
[2019-07-18] MEDS ORDERED: MIDAZOLAM 2 MG/2 ML VIAL IV ONE (09:25)
[2019-07-18] MEDS ORDERED: LIDOCAINE 1% INJ 10MG/ML (20 ML MDV) SQ ONE (09:30)
[2019-07-18] MEDS ORDERED: HEPARIN SODIUM 1,000 UN/ML (10ML VL) IV ONE (09:32)
[2019-07-18] MEDS ORDERED: HYDROmorphone 1 MG/ML 1 ML SYRINGE IVP ONE (10:01)
[2019-07-18] MEDS ORDERED: IOPAMIDOL-250 100ML BTL INTRAARTER ONE (10:06)
[2019-07-18] MEDS ORDERED: CLOPIDOGREL 75 MG TAB PO ONE (10:06)
[2019-07-18] MEDS ORDERED: SODIUM CHLORIDE 0.9% 1,000 ML in EMPTY BAG 1 BAG IV SCH (10:15)
[2019-07-18] MEDS ORDERED: ONDANSETRON 4 MG/2 ML VIAL IVP STA (10:45)
[2019-07-18] MEDS ORDERED: ONDANSETRON 4 MG/2 ML VIAL ONE (10:47)
--- NOTE | 2019-07-18 11:01 | IR ---
EXAMINATION TYPE: IR well logging captain mud analysis femoral popliteal DATE OF EXAM: 07/18/2019 COMPARISON: NONE HISTORY: Fluoroscopy time. Fluoroscopy was provided to the referring clinician. 6.4 minutes of fluoroscopy provided.
--- NOTE | 2019-07-18 11:40 | AN ---
ANGIOGRAPHY REPORT DATE OF SERVICE: 07/18/2019 PERFORMING PHYSICIAN: Kaz Hu MD. PROCEDURE PERFORMED: 1. Left lower extremity angiogram. 2. Atherectomy of the left superficial femoral artery using TurboHawk device with extraction of significant plaque. 3. Successful balloon angioplasty of the left superficial femoral artery using 5 x 60 mm drug-coated balloon with an excellent angiographic result. 4. Intravascular ultrasound, (IVUS) of the left superficial femoral artery. APPROACH: Left posterior tibial artery. COMPLICATIONS: None. LEVEL OF SEDATION: Moderate with sedation length of 32 minutes. PROCEDURE DESCRIPTION: After obtaining an informed consent, the patient was brought to the cardiac laboratory inspector. The left posterior tibial artery was cannulated using micropuncture technique, the micropuncture wire passed easily and that was performed under ultrasound guidance, then I placed the Slender 5-6-Hong Konger sheath in the left posterior tibial artery. At that point, anticoagulation was initiated using heparin where the patient was given 6000 units of heparin IV with continuous infusion of cocktail consistent of nitroglycerin, verapamil, and heparin. I did left lower extremity angiogram, which revealed intermediate to severe disease involving the left SFA. Also it did reveal 3-vessel runoff. After that I did cross the lesion using 0.[address] wire. I did after that intravascular ultrasound, which revealed an in-vessel diameter of the SFA of about 5.5 to 6 mm with an area of stenosis about 80%. After that I did atherectomy using the TurboHawk device with extraction of significant plaque and then I did balloon angioplasty using 5 mm x 80 regular balloon and subsequently 5 x 60 drug-coated balloon, which was inflated under 3 minutes. It was inflated under 14 atmospheres. The following angiogram showed excellent angiographic result and the procedure was completed without any complication. POSTPROCEDURE MANAGEMENT: 1. Dual antiplatelet therapy. 2. Risk factor modifications. 3. Followup with the patient. MMODL / IJN: [id number] /
[2019-07-18] MEDS: DIPYRIDAMOLE-ASPIRIN 200-25 MG 1 EACH CPMP.12HR PO SCH (20:07)
[2019-07-18] MEDS ORDERED: ATORVASTATIN 10 MG TAB PO SCH (21:00)
[2019-07-19 03:33] VITALS: PULSE 71
[2019-07-19 06:36] LABS: Basophils # (A) 0.1 k/uL (0-0.2); Basophils % (A) 1 %; Eosinophils # (A) 0.5 k/uL (0-0.7); Eosinophils % (A) 5 %; HCT 39.1 % (39.0-53.0); HGB 12.9 gm/dL (13.0-17.5); Lymphocytes # (A) 1.3 k/uL (1.0-4.8); Lymphocytes % (A) 15 %; MCH 30.5 pg (25.0-35.0); MCHC 33.1 g/dL (31.0-37.0); Mean Platelet Volume 6.9; Monocytes # (A) 0.4 k/uL (0-1.0); Monocytes % (A) 5 %; Neutrophils # (A) 6.6 k/uL (1.3-7.7); Neutrophils % (A) 73 %; Platelet Count 228 k/uL (150-450); RBC 4.24 m/uL (4.30-5.90); RDW 12.1 % (11.5-15.5); WBC 9.1 k/uL (3.8-10.6)
[2019-07-19 06:39] LABS: African American GFR (CKD) >90 (>60 ml/min/1.73 sqM); Anion Gap 3 mmol/L; Blood Urea Nitrogen 11 mg/dL (9-20); Calcium 8.7 mg/dL (8.4-10.2); Carbon Dioxide 31 mmol/L (22-30); Chloride 102 mmol/L (98-107); Glucose 92 mg/dL (74-99); Non-African American GFR(CKD) 90 (>60 ml/min/1.73 sqM); Potassium 4.2 mmol/L (3.5-5.1); Sodium 136 mmol/L (137-145)
[2019-07-19] MEDS ORDERED: PANTOPRAZOLE 40 MG TABLET PO SCH (07:30)
[2019-07-19] MEDS: DIPYRIDAMOLE-ASPIRIN 200-25 MG 1 EACH CPMP.12HR PO SCH (08:27)
[2019-07-19] MEDS ORDERED: CLOPIDOGREL 75 MG TAB PO SCH (09:00)
[2019-07-19] MEDS ORDERED: ASPIRIN 325 MG TAB PO SCH (09:00)
[2019-07-19] MEDS ORDERED: NON FORMULARY DRUG (Omega-3 Fatty Acids/Fish Oil [Fish Oil 1,000 Mg Softgel] 1 EACH) PO SCH (09:00)
[2019-07-19 10:23] VITALS: BP 120/67; RESP 12; TEMP 97.6
--- NOTE | 2019-07-20 09:04 | DS ---
DISCHARGE SUMMARY ADMISSION DATE: July 19, 2019 DISCHARGE DATE: July 20, 2019 BRIEF HISTORY: This is a 69-year-old gentleman who underwent successful percutaneous peripheral intervention on the left SFA. The procedure was performed with an excellent angiographic result and without any complication from left posterior tibial access. The patient was seen yesterday morning and he is going to be discharged on dual antiplatelet therapy and I will follow up with the patient next week in the office. MMODL / IJN: [id number] /
== END 2019-07-19 10:10 | disposition home or self-care (01) ==
LOC: CATHCVL 07:18 → 3SCARD 15:57 → CATHCVL 07-19 10:10
PROVIDERS: ATTEND Internal Medicine Interventional Cardiology
DX: I70.212 Atherosclerosis of native arteries of extremities with intermittent claudication, left leg (principal); E78.5 Hyperlipidemia, unspecified; F17.290 Nicotine dependence, other tobacco product, uncomplicated; Z79.02 Long term (current) use of antithrombotics/antiplatelets; Z79.82 Long term (current) use of aspirin; Z79.899 Other long term (current) drug therapy
CPT/HCPCS: 37225; 37252; 80048; 85025; C1894; C1769 ×4; C1714; C1753; C2623; C1725; J2250; J1644 ×2; J2405; J2001; J1170; Q9966

== ENCOUNTER 2020-05-14 12:28 | Day surgery (SDC) | payer MEDICARE, OTHER ==
[2020-05-12 12:14] VITALS: BMI 26.0
[~2020-05-14 12:28] MED LIST changes: -ASPIRIN 325 MG TAB PO ONE; +ASPIRIN 325 MG TAB PO PRN
[2020-05-14] MEDS: LIDOCAINE 1% INJ 10MG/ML (20 ML MDV) SQ ONE ×3 (14:48→16:15)
[2020-05-14] MEDS ORDERED: MIDAZOLAM 2 MG/2 ML VIAL IV ONE (14:49)
[2020-05-14] MEDS: HEPARIN SODIUM 1,000 UN/ML (10ML VL) IV ONE ×2 (14:52→15:48)
[2020-05-14] MEDS ORDERED: fentaNYL (PF) 50 MCG/ML 2 ML AMP IV ONE (15:24)
[2020-05-14] MEDS ORDERED: SODIUM CHLORIDE 0.9% 500 ML 500 ML with niCARdipine 6.25 MG, NITROGLYCERIN-D5W PMX 0.05... IV ONE ×4 (15:45)
[2020-05-14] MEDS ORDERED: HYDROmorphone 1 MG/ML 1 ML SYRINGE IVP ONE (15:48)
[2020-05-14] MEDS: NITROGLYCERIN 1000MCG/10ML SYRINGE INTRAARTER ONE ×2 (16:00→18:06)
[2020-05-14] MEDS ORDERED: ONDANSETRON 4 MG/2 ML VIAL IVP ONE (16:18)
[2020-05-14] MEDS ORDERED: PROCHLORPERAZINE INJ 10 MG/2 ML VIAL IVP STA (17:12)
[2020-05-14] MEDS ORDERED: PROCHLORPERAZINE INJ 10 MG/2 ML VIAL IVP ONE (17:37)
[2020-05-14] MEDS ORDERED: niCARdipine Syringe (1,000 mcg/10 mL) INTRAARTER ONE (18:07)
[2020-05-14] MEDS ORDERED: IOPAMIDOL-250 100ML BTL INTRAARTER ONE (18:23)
[2020-05-14] MEDS ORDERED: CLOPIDOGREL 75 MG TAB PO ONE (18:35)
--- NOTE | 2020-05-14 20:26 | LTR ---
May 14, 2020 To: Dr. Ish Flores Re: Aaron Ninauley (1950) Dear Dr. Flores: MrAbran Rodríguez underwent successful angioplasty of the right SFA today. I want to thank you for allowing us to participate in his care. Please do not hesitate to call with any question or concern. Sincerely, Kaz Hu M.D. VIKA / NEAL: [id number] /
[2020-05-14] MEDS ORDERED: CLOPIDOGREL 75 MG TAB PO SCH (21:00)
--- NOTE | 2020-05-14 22:06 | PCN ---
PROCEDURE NOTE DATE OF SERVICE: 05/14/2020 PERFORMING PHYSICIAN: Kaz Hu M.D. PROCEDURES PERFORMED: 1. Atherectomy of the right SFA using the orbital atherectomy device. 2. Intravascular ultrasound (IVUS) of the right SFA. 3. Successful stenting of the proximal right SFA using a 7.0 x 80 mm Zilver PTX drug- coated stent with excellent angiographic results. 4. Balloon angioplasty of the mid and distal right SFA. 5. Right lower extremity angiogram. 6. Selective left common femoral artery angiogram. INDICATION: This is a pleasant 70-year-old gentleman with a history of peripheral arterial disease and prior angioplasty and stenting of the right SFA. He was experiencing right leg intermittent claudication and underwent recently an angiogram which revealed occluded right SFA in the proximal portion all the way to the distal portion. He was brought today to undergo an intervention. APPROACH: Left common femoral artery and right popliteal arteries. COMPLICATIONS: None. LEVEL OF SEDATION: Moderate, with sedation length of 221 minutes. PROCEDURE DESCRIPTION: After obtaining informed consent, the patient was brought to the cardiac labor trainer. The left common femoral artery was cannulated using micropuncture technique. The micropuncture wire passed easily. Then I placed a 70 cm 6-Bruneian sheath at the left common femoral artery. After that, anticoagulation was initiated using heparin and the patient was given a total of 8000 units of heparin IV with ACT monitoring throughout the procedure. Subsequently I did select the right profunda using an 0.035 stiff Glidewire with the backup support of 5-Bruneian RIM catheter. After that I did advance the 70 cm 6-Bruneian Raabe sheath all the way to the right common femoral artery. Right lower extremity angiogram was performed and revealed 2-vessel runoff below the knee with posterior, tibial and peroneal with occluded SFA on long segment. Attempting to cross the INSTRUCTIONAL TECHNOLOGY DIRECTOR from above was unsuccessful, and because of that I decided to access from down using retrograde technique. Attempting to access the right posterior tibial artery was unsuccessful, but finally we accessed the right popliteal using ultrasound guidance. After that I crossed the INSTRUCTIONAL TECHNOLOGY DIRECTOR using an 0.018 land-tipped Glidewire with the backup support of an 0.018 CXI catheter. After that I did exchange my wire for an 0.014 wire and I did intravascular ultrasound which showed that I was in the true lumen in the distal and mid portions of the stent, but I was outside the stent in the proximal portion. Balloon angioplasty was performed after that using a 5 mm balloon. Then I did a 6 mm AngioSculpt balloon. After that I did atherectomy of the distal right SFA using the orbital atherectomy device from [facility] and using a 1.25 mm dee. After that I did angioplasty again using this time an AngioSculpt balloon at 6 mm. The following angiogram showed good angiographic results inside the stented segment, but the proximal portion of the stent was extremely tight. I deployed a 7 x 80 mm Zilver PTX drug-coated stent which was post-dilated using a 7 mm balloon with good angiographic results proximally. Distally I deployed the where I deployed 5 pieces of under fluoroscopic guidance. Then I post-dilated using a 5 mm balloon. The final angiogram showed good angiographic results. Distal to the stent area appeared to be diseased in the range of 60%. After that I did exchange my long sheath for a short sheath using an 0.035 wire, and the popliteal sheath was pulled out. The procedure was completed without any complication. POST-PROCEDURE MANAGEMENT: 1. Antiplatelet and anticoagulation. 2. Risk factor modifications. 3. Follow up with the patient. MMODL / IJN: [id number] /
[2020-05-15 03:37] VITALS: TEMP 97.9
[2020-05-15] MEDS ORDERED: PANTOPRAZOLE 40 MG TABLET PO SCH (07:30)
[2020-05-15 07:56] LABS: HCT 44.6 % (39.0-53.0); HGB 14.6 gm/dL (13.0-17.5); MCH 29.7 pg (25.0-35.0); MCHC 32.6 g/dL (31.0-37.0); MCV 91.1 fL (80.0-100.0); Mean Platelet Volume 7.3; Platelet Count 149 k/uL (150-450); RDW 12.9 % (11.5-15.5); WBC 13.1 k/uL (3.8-10.6)
[2020-05-15 08:10] LABS: Potassium 4.1 mmol/L (3.5-5.1)
[2020-05-15 08:11] LABS: African American GFR (CKD) >90 (>60 ml/min/1.73 sqM); Anion Gap 4 mmol/L; Blood Urea Nitrogen 16 mg/dL (9-20); Calcium 9.2 mg/dL (8.4-10.2); Carbon Dioxide 33 mmol/L (22-30); Chloride 102 mmol/L (98-107); Glucose 100 mg/dL (74-99); Non-African American GFR(CKD) 88 (>60 ml/min/1.73 sqM); Sodium 139 mmol/L (137-145)
[2020-05-15 08:15] VITALS: BP 123/61; PULSE 83; RESP 16
[2020-05-15] MEDS ORDERED: ASPIRIN 325 MG TAB PO SCH (09:00)
[2020-05-15] MEDS ORDERED: ATORVASTATIN 20 MG TAB PO SCH (09:00)
--- NOTE | 2020-05-15 10:24 | IR ---
EXAMINATION TYPE: IR police captain precinct femoral popliteal DATE OF EXAM: 05/14/2020 COMPARISON: None HISTORY: Fluoroscopy time. Fluoroscopy was provided to the referring clinician.
--- NOTE | 2020-05-15 11:56 | DS ---
DISCHARGE SUMMARY ADMISSION DATE: 05/14/2020 DISCHARGE DATE: 05/15/2020 BRIEF HISTORY: This is a very pleasant 70-year-old gentleman who underwent yesterday successful recanalizing, chronically occluded right SFA. He was seen this morning. The left groin is soft and nontender and without any bruises. I was able to feel pulse in the right posterior tibial artery. The patient is going to be discharged home on Xarelto along with a statin along with aspirin. I will follow up with him next week in the office. MMODL / IJN: [id number] /
[2020-05-15] MEDS ORDERED: CLOPIDOGREL 75 MG TAB PO SCH (21:00)
== END 2020-05-15 10:03 | disposition home or self-care (01) ==
LOC: CATHCVL 12:28 → 3SCARD 19:17 → CATHCVL 05-15 10:03
PROVIDERS: ATTEND Internal Medicine Interventional Cardiology
DX: I70.211 Atherosclerosis of native arteries of extremities with intermittent claudication, right leg (principal); I70.92 Chronic total occlusion of artery of the extremities; E78.2 Mixed hyperlipidemia; F17.210 Nicotine dependence, cigarettes, uncomplicated; Z79.82 Long term (current) use of aspirin; Z79.02 Long term (current) use of antithrombotics/antiplatelets; Z79.899 Other long term (current) drug therapy
CPT/HCPCS: 94760; 37227; 37252; 80048; 85027; C1894 ×3; C1769 ×9; C1714; C1725 ×4; C1887; C1753; C2623 ×2; C1874; C1876; J2250; J0780; J2405; J2001; J3010; J1644; J1170; Q9966

== ENCOUNTER 2021-04-14 05:59 | Day surgery (SDC) | payer OTHER ==
[2021-04-10 11:35] VITALS: BMI 24.9
[~2021-04-14 05:59] MED LIST changes: +ALPRAZolam 0.5 MG TAB PO PRN; +HEPARIN SODIUM,PORCINE 10,000 UNIT in SODIUM CHLORIDE 0.9% 1,000 ML IRRIGATION PRN; +HEPARIN SODIUM,PORCINE 2,500 UNIT in SODIUM CHLORIDE 0.9% 250 ML IRRIGATION PRN; +ZOLPIDEM 5 MG TAB PO PRN
[2021-04-14] MEDS ORDERED: SODIUM CHLORIDE 0.9% 1,000 ML IV ONE (06:14)
[2021-04-14 06:45] VITALS: RESP 16; TEMP 98.3
[2021-04-14] MEDS ORDERED: LIDOCAINE 1% INJ 10MG/ML (20 ML MDV) ONE (07:15)
[2021-04-14] MEDS ORDERED: MIDAZOLAM 2 MG/2 ML VIAL IV ONE (07:35)
[2021-04-14] MEDS ORDERED: LIDOCAINE 1% INJ 10MG/ML (20 ML MDV) SQ ONE (07:39)
[2021-04-14] MEDS ORDERED: IOPAMIDOL-370 100ML BTL INJ ONE (07:50)
[2021-04-14] MEDS ORDERED: SODIUM CHLORIDE 0.9% 1,000 ML IV SCH (08:00)
[2021-04-14 10:19] VITALS: PULSE 64
--- NOTE | 2021-04-14 10:35 | AN ---
ANGIOGRAPHY REPORT ABDOMINAL AORTOGRAM AND BILATERAL LOWER EXTREMITY RUNOFF: DATE OF SERVICE: 04/14/2021 PERFORMING PHYSICIAN: Kaz Hu M.D. PROCEDURES PERFORMED: 1. Abdominal aortogram. 2. Bilateral lower extremity runoff. 3. Ultrasound-guided access of the right common femoral artery. INDICATION: Right leg intermittent claudication in this 71-year-old gentleman who is known to have PAD and prior stenting of the right SFA. APPROACH: Right common femoral artery. COMPLICATIONS: None. LEVEL OF SEDATION: Moderate, with sedation length of minutes. PROCEDURE DESCRIPTION: After obtaining informed consent, the patient was brought to the cardiac sanitation laborer. The right common femoral artery was cannulated using micropuncture technique under ultrasound guidance. The micropuncture wire passed easily. Then I placed a 5-Romanian sheath at the right common femoral artery. An abdominal aortogram and bilateral lower extremity runoff were performed using 5- Romanian pigtail catheter which was initially placed at the level of the renal arteries, then it was pulled into above the bifurcation of the aorta to right and left common iliac arteries. The procedure was completed without any complication. FINDINGS: 1. The aorta appeared to be angiographically normal. 2. Common iliac arteries: Both appeared to be patent. 3. Internal iliac arteries: Both appeared to be patent. 4. External iliac arteries: Both appeared to be patent. 5. Femoral arteries: Both appeared to be patent. 6. Profundae: Both are patent. 7. SFA: The right SFA is occluded on a long segment that extends from the ostium all the way to the popliteal. The left SFA has mild to moderate diffuse disease. 8. Popliteals: Both appeared to have mild disease only. 9. Below the knee: The arteries below the knee were not well visualized because of technical problem in the x-ray. CONCLUSION: Occluded right SFA on a long segment that extends from the ostium all the way to the Tom canal. This is in-stent occlusion. POST-PROCEDURE MANAGEMENT: UI DEVELOPER WITH ANGULAR JS of the right SFA to be performed in the next few weeks. MMODL / IJN: [id number] /
--- NOTE | 2021-04-14 10:46 | IR ---
EXAMINATION TYPE: IR angio abdominal w runoff DATE OF EXAM: 04/14/2021 CLINICAL HISTORY: Right leg pain TECHNIQUE: Fluoroscopy. COMPARISON: None. FINDINGS: Fluoroscopic guidance was provided during abdominal angiogram with runoff procedure perfor med by Dr. Hu. A total of 84 seconds of fluoroscopic time was utilized during the procedure and 12 6 spot images was acquired. Please refer to procedure note for further details if necessary. IMPRESSION: As Above.
[2021-04-14 15:18] VITALS: BP 132/64
--- NOTE | 2021-04-16 11:42 | CDI ---
Outpatient Documentation Clarification Form Date: 04/16/21 CDS/Vp Of Product Name: Mirian Malcolm Phone: If any questions, call Jada Sandoval at Patient Namer: Aaron Rodríguez Admit Date: 04/14/21 Discharge Date: 04/14/21 ATTENTION: The [facility] Coding staff appreciate your assistance in clarifying documentation. Please respond to the clarification below the line at the bottom and electronically sign. The [facility] Coding staff will review the response and follow-up if needed. Please Note: Queries are made part of the Legal Health Record. If you have any question, please contact the asset protection manager. Dear Dr. Hu Please provide clarification as to the cause of the occlusive PAD. PAD/PVD is considered unspecified. Greatest specificity is required for medical necessity support. Is underlying cause of the Occlusive PAD one of the following? Arteriosclerotic Disease of the arteries Arteritis Necrotic Due to embolism/thrombosis Other - please specify below. Thank you for your kind consideration. MTDD
--- NOTE | 2021-05-25 15:14 | CDI ---
[facility] [place] [address] [place] [address] Date: 05/25/2021 12:00:00 AM From: Mirian Malcolm Phone: Admit Date: 04/03/2021 05:41:00 AM Patient Name: Mickey Moreno Visit Number: [id number] Discharge Date: Payor: MEDICARE Dear Dr. Hu Outpatient Documentation Clarification Form Date: 04/16/21 CDS/Glaze Wiper Name: Mirian Malcolm Phone: If any questions, call Jada Sandoval at Patient Namer: Aaron Rodríguez Admit Date: 04/14/21 Discharge Date: 04/14/21 ATTENTION: The [facility] Coding staff appreciate your assistance in clarifying documentation. Please respond to the clarification below the line at the bottom and electronically sign. The [facility] Coding staff will review the response and follow-up if needed. Please Note: Queries are made part of the Legal Health Record. If you have any question, please contact the [facility] centre manager. Dear Dr. Hu Please provide clarification as to the cause of the occlusive PAD. PAD/PVD is considered unspecified. Greatest specificity is required for medical necessity support. Is underlying cause of the Occlusive PAD one of the following? Arteriosclerotic Disease of the arteries Arteritis Necrotic Due to embolism/thrombosis Other - please specify below. Thank you for your kind consideration __ MTDD
--- NOTE | 2021-05-25 15:26 | CDI ---
[facility] [place] [address] [facility] [place] [address] Date: 05/25/2021 12:00:00 AM From: Mirian Malcolm Phone: Admit Date: 04/14/2021 05:59:00 AM Patient Name: Aaron Rodríguez Visit Number: [id number] Discharge Date: Payor: COMMERCIAL Dear Dr. Hu, Outpatient Documentation Clarification Form Date: 05/25/21 CDS/Investigation Division Sergeant Name: Mirian Malcolm Phone: If any questions, call Jada Sandoval at Patient Namer: Aaron Rodríguez Admit Date: 04/14/21 Discharge Date: 04/14/21 ATTENTION: The [facility] Coding staff appreciate your assistance in clarifying documentation. Please respond to the clarification below the line at the bottom and electronically sign. The [facility] Coding staff will review the response and follow-up if needed. Please Note: Queries are made part of the Legal Health Record. If you have any question, please contact the manager of warehouse. Dear Dr. Hu Please provide clarification as to the cause of the occlusive PAD. PAD/PVD is considered unspecified. Greatest specificity is required for medical necessity support. MTDD
== END 2021-04-14 14:38 | disposition home or self-care (01) ==
LOC: CATHCVL 05:59
PROVIDERS: ATTEND Internal Medicine Interventional Cardiology
DX: I73.9 Peripheral vascular disease, unspecified (principal); I10 Essential (primary) hypertension; E78.2 Mixed hyperlipidemia; F17.200 Nicotine dependence, unspecified, uncomplicated; Z20.822 Contact with and (suspected) exposure to COVID-19; Z95.820 Peripheral vascular angioplasty status with implants and grafts; Z79.01 Long term (current) use of anticoagulants; Z79.82 Long term (current) use of aspirin; Z79.899 Other long term (current) drug therapy
CPT/HCPCS: 36200; 75625; 75716; 76937; 87635; C1769 ×4; C1894; J2250; J2001; Q9967

== ENCOUNTER 2021-05-05 10:35 | Emergency (ER) | payer OTHER ==
[2021-05-05 13:41] VITALS: BP 153/80; PULSE 77; RESP 20; TEMP 98.5
--- NOTE | 2021-05-05 15:50 | ED ---
General Adult HPI - General Chief complaint: ENT Stated complaint: lt ear problem Time Seen by Provider: 05/05/21 14:52 Source: patient, RN notes reviewed Mode of arrival: ambulatory Limitations: no limitations - History of Present Illness Initial comments: 71-year-old male presents to the emergency department with complaints of foreign body in the left ear. Patient states that the rubber end of his hearing aid stuck in his ear last night and he was unable to retrieve it at home. Patient denies discomfort. Reports reduced hearing. Denies any other injuries, illness, or symptoms at this time. - Related Data Home Medications Medication Instructions Recorded Confirmed Omeprazole 20 mg PO DAILY 06/14/16 04/14/21 Atorvastatin [Lipitor] 20 mg PO HS 05/12/20 04/14/21 Multivitamins, Thera [Multivitamin 1 tab PO DAILY 05/12/20 04/14/21 (formulary)] Metoprolol Tartrate [Lopressor] 12.5 mg PO BID 04/10/21 04/14/21 Psyllium Husk (with Sugar) 2 gm PO DAILY 04/10/21 04/14/21 [Metamucil Fiber Thin] Previous Rx's Medication Instructions Recorded Aspirin 325 mg PO DAILY #90 tab 07/04/19 Allergies Allergy/AdvReac Type Severity Reaction Status Date / Time No Known Allergies Allergy Verified 05/05/21 13:38 Review of Systems ROS Statement: Those systems with pertinent positive or pertinent negative responses have been documented in the HPI. ROS Other: All systems not noted in ROS Statement are negative. Past Medical History Past Medical History: Chest Pain / Angina, CVA/TIA, GERD/Reflux, Hearing Disorder / Deafness, Hyperlipidemia, Hypertension, Osteoarthritis (OA), Vascular Disorder Additional Past Medical History / Comment(s): blockages in legs, Rt leg locks up; has one kidney, TIA yrs ago-no residual effects, "small arteries heart," hearing aids, hemorrhoids, OA back/neck. bruises easy History of Any Multi-Drug Resistant Organisms: None Reported Past Surgical History: Appendectomy, Heart Catheterization Additional Past Surgical History / Comment(s): THROAT POLYPS REMOVED. abdominal aortogram, procedures for blockages sebastián legs/PTBA, Arthrectomy, has "stents - 1 lt leg, 6 Rt leg." Past Anesthesia/Blood Transfusion Reactions: No Reported Reaction Past Psychological History: Anxiety Smoking Status: Current every day smoker Past Alcohol Use History: None Reported Past Drug Use History: None Reported - Past Family History Brother(s) Family Medical History: Cancer Additional Family Medical History / Comment(s): 1 brother of cancer. 2nd brother remission of throat cancer General Exam Limitations: no limitations (Well-developed, well-nourished male in no acute distress. Initial temperature 98.5, pulse 77, respirations 20, blood pressure 153/80, pulse ox 96% on room air.) General appearance: alert, in no apparent distress ENT exam: Present: normal exam, normal oropharynx, mucous membranes moist Expanded Ear exam: Present: normal external inspection TM/Canal exam: Foreign Body: Left TM (black, rubber piece from hearing aid; successful removal. TM intact, mild erythema in canal after removal) Neck exam: Present: normal inspection. Absent: tenderness, meningismus, lymphadenopathy Respiratory exam: Present: normal lung sounds bilaterally. Absent: respiratory distress, wheezes, rales, rhonchi, stridor Cardiovascular Exam: Present: regular rate, normal rhythm, normal heart sounds. Absent: systolic murmur, diastolic murmur, rubs, gallop, clicks GI/Abdominal exam: Present: soft, normal bowel sounds. Absent: distended, tenderness, guarding, rebound, rigid Neurological exam: Present: alert, oriented X3, CN II-XII intact Psychiatric exam: Present: normal affect, normal mood Skin exam: Present: warm, dry, intact, normal color. Absent: rash Course Vital Signs 05/05/21 13:38 Temperature 98.5 F Pulse Rate 77 Respiratory 20 Rate Blood Pressure 153/80 O2 Sat by Pulse 96 Oximetry Procedures - Foreign Body Removal Ear Location: ear canal (L) Foreign Body Suspected: other (black rubber ear bud from hearing aid) Foreign Body Removed: yes Foreign Body Removal Technique: forceps Tympanic Membrane Intact: Yes Patient Tolerated Procedure: well Complications: none Additional Comments: Patient tolerated procedure without difficulty. Successful removal of foreign body. TM intact. Very mild erythema after removal; no wound or abrasion. Medical Decision Making - Medical Decision Making This is a 71-year-old male presents to the emergency department for evaluation of foreign body in the left ear. Upon exam, black rubber-appearing end of the hearing aid is visualized in the left ear canal. Foreign body was removed using alligator forceps and tolerated procedure without difficulty. Reexamination of ear canal shows tympanic membrane intact. Patient reports improvement in discomfort and hearing. He will be discharged home to follow up with his PCP as needed. Return parameters were discussed. Patient verbalizes understanding and agrees with this plan. This patient's care was discussed with my attending Dr. Richard. Disposition Clinical Impression: Foreign body in left ear Disposition: HOME SELF-CARE Condition: Good Instructions (If sedation given, give patient instructions): Ear Foreign Body (ED) Additional Instructions: Follow-up with your primary care provider as needed for a recheck. Return to the emergency department with any new, worsening, or concerning symptoms. Is patient prescribed a controlled substance at d/c from ED?: No Referrals: [facility],Clinic [Primary Care Provider] - 1-2 days Time of Disposition: 15:49
== END 2021-05-05 15:58 | disposition home or self-care (01) ==
LOC: EC 10:35
DX: T16.2XXA Foreign body in left ear, initial encounter (principal); K21.9 Gastro-esophageal reflux disease without esophagitis; E78.5 Hyperlipidemia, unspecified; I10 Essential (primary) hypertension; M19.90 Unspecified osteoarthritis, unspecified site; F41.9 Anxiety disorder, unspecified; F17.200 Nicotine dependence, unspecified, uncomplicated; Z79.82 Long term (current) use of aspirin; Z86.73 Personal history of transient ischemic attack (TIA), and cerebral infarction without residual deficits; Z90.49 Acquired absence of other specified parts of digestive tract; W45.8XXA Other foreign body or object entering through skin, initial encounter
CPT/HCPCS: 69200; 99282

== ENCOUNTER 2021-05-20 10:18 | Day surgery (SDC) | payer OTHER ==
[2021-05-15 15:28] VITALS: BMI 25.5
[~2021-05-20 10:18] MED LIST changes: -ALPRAZolam 0.5 MG TAB PO PRN; -HEPARIN SODIUM,PORCINE 10,000 UNIT in SODIUM CHLORIDE 0.9% 1,000 ML IRRIGATION PRN; -HEPARIN SODIUM,PORCINE 2,500 UNIT in SODIUM CHLORIDE 0.9% 250 ML IRRIGATION PRN; -ZOLPIDEM 5 MG TAB PO PRN
[2021-05-20] MEDS ORDERED: SODIUM CHLORIDE 0.9% 1,000 ML IV ONE (10:40)
[2021-05-20 10:49] LABS: Basophils # (A) 0.1 k/uL (0-0.2); Basophils % (A) 1 %; Eosinophils # (A) 0.6 k/uL (0-0.7); Eosinophils % (A) 5 %; HCT 49.7 % (39.0-53.0); HGB 16.7 gm/dL (13.0-17.5); Lymphocytes # (A) 2.4 k/uL (1.0-4.8); Lymphocytes % (A) 20 %; MCH 31.3 pg (25.0-35.0); MCHC 33.6 g/dL (31.0-37.0); MCV 93.1 fL (80.0-100.0); Mean Platelet Volume 7.7; Monocytes # (A) 0.8 k/uL (0-1.0); Monocytes % (A) 6 %; Neutrophils # (A) 8.4 k/uL (1.3-7.7); Neutrophils % (A) 67 %; Platelet Count 209 k/uL (150-450); RBC 5.34 m/uL (4.30-5.90); RDW 12.6 % (11.5-15.5); WBC 12.5 k/uL (3.8-10.6)
[2021-05-20 11:22] LABS: African American GFR (CKD) >90 (>60 ml/min/1.73 sqM); Anion Gap 4 mmol/L; Blood Urea Nitrogen 17 mg/dL (9-20); Calcium 9.8 mg/dL (8.4-10.2); Carbon Dioxide 35 mmol/L (22-30); Chloride 101 mmol/L (98-107); Glucose 98 mg/dL (74-99); Non-African American GFR(CKD) 79 (>60 ml/min/1.73 sqM); Potassium 4.7 mmol/L (3.5-5.1); Sodium 140 mmol/L (137-145)
[2021-05-20] MEDS ORDERED: LIDOCAINE 1% INJ 10MG/ML (20 ML MDV) SQ ONE (11:27)
[2021-05-20] MEDS ORDERED: MIDAZOLAM 2 MG/2 ML VIAL IV ONE ×2 (11:27)
[2021-05-20] MEDS ORDERED: HEPARIN SODIUM 1,000 UN/ML (10ML VL) IV ONE (11:39)
[2021-05-20] MEDS ORDERED: niCARdipine Syringe (1,000 mcg/10 mL) INTRAARTER ONE (12:35)
[2021-05-20] MEDS ORDERED: NITROGLYCERIN 1000MCG/10ML SYRINGE INTRAARTER ONE (12:35)
[2021-05-20] MEDS ORDERED: CLOPIDOGREL 75 MG TAB PO ONE (13:02)
[2021-05-20] MEDS ORDERED: IOPAMIDOL-250 100ML BTL INTRAARTER ONE (13:02)
[2021-05-20] MEDS ORDERED: SODIUM CHLORIDE 0.9% 1,000 ML in EMPTY BAG 1 BAG IV SCH (13:15)
--- NOTE | 2021-05-20 14:35 | IR ---
Fluoroscopy HISTORY: Peripheral vascular occlusive disease 16.8 minutes fluoroscopy time supplied to the referring clinician. 431 intraoperative C-arm images d ocument the procedure. See dictated report from cardiology.
[2021-05-20] MEDS ORDERED: HYDROmorphone 0.5 MG/0.5 ML SYRINGE IVP ONE (15:35)
[2021-05-20] MEDS ORDERED: HYDROmorphone 0.5 MG/0.5 ML SYRINGE IVP PRN (15:36)
[2021-05-20 17:07] VITALS: RESP 16
[2021-05-20 20:41] VITALS: PULSE 77; TEMP 98.5
[2021-05-20 20:49] VITALS: BP 151/74
--- NOTE | 2021-05-20 20:56 | AN ---
ANGIOGRAPHY REPORT DATE OF SERVICE: May 20, 2021. PERFORMING PHYSICIAN: Kaz Hu MD. PROCEDURE PERFORMED: 1. Successful stenting of the distal right SFA using 6.0 x 120 mm Zilver PTX drug- coated stent with excellent angiographic results. 2. Successful balloon angioplasty of the right SFA and right popliteal. 3. Intravascular ultrasound (IVUS) of the right SFA and right popliteal. 4. Successful crossing chronic total occlusion of the right SFA and right popliteal. 5. Right lower extremity angiogram. 6. Selective left common femoral artery angiogram. 7. Ultrasound-guided access of the left common femoral artery. INDICATION: This is a pleasant 69-year-old gentleman with known history of peripheral arterial disease and prior angioplasty of the right SFA, who was experiencing symptoms of intermittent claudication. He underwent an angiogram which revealed occluded right SFA. He was brought today to undergo an intervention. APPROACH: Left common femoral artery. COMPLICATION: None. LEVEL OF SEDATION: Moderate with sedation length of 90 minutes. PROCEDURE DESCRIPTION: After obtaining informed consent, the patient was brought to the cardiac open hearth laborer. The left common femoral artery was cannulated using micropuncture technique under ultrasound guidance, the micropuncture wire passed easily. Then I placed a 6-[place] Citizen 70 cm at the left common femoral artery and that was performed. After that left common femoral artery was pre-dilated using 5 and 6 and 7 dilators. I did that because the left groin is fibrotic because of multiple procedures. The right common femoral artery was selected using 0.035 stiff Glidewire with the backup support of 5-[place] Citizen RIM catheter. After that, I did advance the long sheath over the wire and the catheter all the way to the right common femoral artery. Right common femoral artery angiogram was performed with injection through the sheath and that revealed occluded SFA and right popliteal with 2 vessel runoff below the knee on the right side with posterior tibial and peroneal. Crossing the chronic total occlusion of the right SFA was performed using 0.035 stiff Glidewire with the backup support of 035 catheter. The wire was advanced all the way to the distal right popliteal. Then I did advance the catheter over the wire. Then I injected through the catheter to prove that I was in the true lumen. Please note that anticoagulation with heparin was initiated at the beginning of the procedure. Subsequently, I did balloon angioplasty of the right SFA and right popliteal using 5- [place] Citizen long balloon. After that, the following angiogram showed adequate angiographic results in the right SFA and right popliteal access for the distal right SFA which showed a tight lesion where we placed tacks in the past. I decided to cover that with a stent so I placed a 6 x 120 mm Zilver PTX drug-coated stent which was positioned under fluoroscopy guidance and deployed under fluoroscopic guidance and postdilated using 5 mm balloon. The rest of the SFA was dilated using 6 mm drug-coated balloon. The final angiogram showed an area in the was disease seems to be tight. At that point, I decided to go ahead and balloon that area using a chocolate balloon. I did exchange my 035 wire into 014 wire and then I did 6 mm Chocolate balloon of the ostial right SFA multiple times. The following angiogram showed adequate angiographic results and the procedure was completed without any complication. Completion angiogram was performed and showed 2 vessels runoff below the knee, similar to what we had before. Subsequently, I did exchange my long sheath into short sheath using 0.035 stiff Glidewire before I did selective left common femoral artery angiogram. After that the procedure was completed without any complication. POSTPROCEDURE MANAGEMENT: 1. Dual anti-platelet therapy. 2. Aggressive cholesterol control. 3. The patient will benefit from the profunda endarterectomy. MMODL / IJN: [id number] /
[2021-05-20] MEDS ORDERED: APIXABAN 2.5 MG TABLET PO SCH (21:00)
[2021-05-21] MEDS ORDERED: CLOPIDOGREL 75 MG TAB PO SCH (09:00)
== END 2021-05-21 00:01 | disposition home or self-care (01) ==
LOC: CATHCVL 10:18 → 6NMEDSUR 13:13 → CATHCVL 05-21 00:01
PROVIDERS: ATTEND Internal Medicine Interventional Cardiology
DX: I70.211 Atherosclerosis of native arteries of extremities with intermittent claudication, right leg (principal); I70.92 Chronic total occlusion of artery of the extremities; I25.10 Atherosclerotic heart disease of native coronary artery without angina pectoris; E78.00 Pure hypercholesterolemia, unspecified; E78.5 Hyperlipidemia, unspecified; Z20.822 Contact with and (suspected) exposure to COVID-19; Z79.82 Long term (current) use of aspirin; Z79.899 Other long term (current) drug therapy; Z79.01 Long term (current) use of anticoagulants
CPT/HCPCS: 37226; 37252; 80048; 85025; 87635; C1894 ×2; C1769 ×4; C1725 ×3; C1753; C1874; C2623; J2250; J2001; J1644; J1170; Q9966

== ENCOUNTER 2021-06-10 08:57 | Day surgery (SDC) | payer OTHER ==
[2021-06-04 15:36] VITALS: BMI 24.9
[2021-06-10 09:29] VITALS: TEMP 98.3
[2021-06-10] MEDS ORDERED: LACTATED RINGERS 1,000 ML IV ONE ×2 (09:41)
[2021-06-10] MEDS ORDERED: PROPOFOL 10 MG/ML 20 ML VIAL IV ONE (09:47)
[2021-06-10 10:08] VITALS: RESP 16
--- NOTE | 2021-06-10 10:09 | P.PCN ---
Date of Procedure: 06/10/21 Procedure(s) Performed: BRIEF HISTORY: Patient is a 71-year-old pleasant white male scheduled for an elective colonoscopy as a part of value should of prior history of colon polyps. PROCEDURE PERFORMED: Colonoscopy with snare polypectomy. PREOPERATIVE DIAGNOSIS: History of colon polyps. IV sedation per Anesthesia. PROCEDURE: After informed consent was obtained, the patient, was brought into the endoscopy unit. IV sedation was administered by Anesthesia under continuous monitoring. Digital rectal examination was normal. Initially the Olympus CF-160 flexible video colonoscope was then inserted in the rectum, gradually advanced into the cecum without any difficulty. Careful examination was performed as the scope was gradually being withdrawn. Ileocecal valve and the appendiceal orifice were visualized and appeared normal. Prep was excellent. Mucosa of the cecum, appeared normal. In the ascending colon there was a 1.5 cm broad-based polyp that was removed by snare polypectomy. Rest of the ascending colon, transverse colon, descending colon, sigmoid colon, and rectum appeared normal. Retroflexion was performed in the rectum and no lesions were seen. The patient tolerated the procedure well. IMPRESSION: 1.5 cm broad-based ascending colon polyp status post polypectomy Rest of the colon appeared normal RECOMMENDATIONS: Findings of this examination were discussed with the patient as well as her family. He was advised to follow with the biopsy results and if the biopsy results adenoma have a repeat colonoscopy in 3 years..
[2021-06-10 10:22] VITALS: BP 116/79; PULSE 86
== END 2021-06-10 10:53 | disposition home or self-care (01) ==
LOC: ORWHC2ENDO 08:57
PROVIDERS: ATTEND Internal Medicine Gastroenterology
DX: Z12.11 Encounter for screening for malignant neoplasm of colon (principal); Z86.010 Personal history of colon polyps; D12.2 Benign neoplasm of ascending colon; I25.10 Atherosclerotic heart disease of native coronary artery without angina pectoris; I10 Essential (primary) hypertension; I73.9 Peripheral vascular disease, unspecified; M19.90 Unspecified osteoarthritis, unspecified site; Z86.73 Personal history of transient ischemic attack (TIA), and cerebral infarction without residual deficits; K21.9 Gastro-esophageal reflux disease without esophagitis; Z79.01 Long term (current) use of anticoagulants; Z79.899 Other long term (current) drug therapy; Z79.82 Long term (current) use of aspirin
CPT/HCPCS: 88305; 45385; J2704

== ENCOUNTER 2022-03-09 10:27 | Day surgery (SDC) | payer OTHER ==
[2022-03-05 12:56] VITALS: BMI 25.5
[2022-03-09] MEDS ORDERED: SODIUM CHLORIDE 0.9% 1,000 ML IV ONE (10:42)
[2022-03-09 11:11] LABS: Basophils # (A) 0.1 k/uL (0-0.2); Basophils % (A) 1 %; Eosinophils # (A) 0.6 k/uL (0-0.7); Eosinophils % (A) 6 %; HCT 42.8 % (39.0-53.0); HGB 14.3 gm/dL (13.0-17.5); Lymphocytes # (A) 1.9 k/uL (1.0-4.8); Lymphocytes % (A) 18 %; MCH 30.7 pg (25.0-35.0); MCHC 33.4 g/dL (31.0-37.0); Mean Platelet Volume 8.1; Monocytes # (A) 0.6 k/uL (0-1.0); Monocytes % (A) 5 %; Neutrophils % (A) 68 %; Platelet Count 163 k/uL (150-450); RBC 4.65 m/uL (4.30-5.90); RDW 12.5 % (11.5-15.5); WBC 10.3 k/uL (3.8-10.6)
[2022-03-09 11:18] LABS: African American GFR (CKD) >90 (>60 ml/min/1.73 sqM); Anion Gap 9 mmol/L; Blood Urea Nitrogen 13 mg/dL (9-20); Carbon Dioxide 26 mmol/L (22-30); Chloride 102 mmol/L (98-107); Glucose 94 mg/dL (74-99); Non-African American GFR(CKD) 87 (>60 ml/min/1.73 sqM); Potassium 4.5 mmol/L (3.5-5.1); Sodium 137 mmol/L (137-145)
[2022-03-09 12:00] VITALS: BP 140/67; PULSE 69; RESP 16; TEMP 98.7
== END 2022-03-09 12:54 | disposition home or self-care (01) ==
LOC: CATHCVL 10:27
PROVIDERS: ATTEND Internal Medicine Interventional Cardiology
DX: Z53.9 Procedure and treatment not carried out, unspecified reason (principal); I73.9 Peripheral vascular disease, unspecified
CPT/HCPCS: 80048; 85025

== ENCOUNTER 2022-03-10 06:26 | Day surgery (SDC) | payer OTHER ==
[2022-03-10] MEDS ORDERED: SODIUM CHLORIDE 0.9% 1,000 ML in EMPTY BAG 1 BAG IV ONE (06:27)
[2022-03-10] MEDS ORDERED: ALPRAZolam 0.25 MG TAB PO PRN (06:27)
[2022-03-10] MEDS ORDERED: ASPIRIN 325 MG TAB PO PRN (07:00)
[2022-03-10] MEDS ORDERED: MIDAZOLAM 2 MG/2 ML VIAL IV ONE (07:51)
[2022-03-10] MEDS ORDERED: LIDOCAINE 1% INJ 10MG/ML (30 ML VIAL-PF) SQ ONE (07:52)
[2022-03-10] MEDS ORDERED: HEPARIN SODIUM 1,000 UN/ML (10ML VL) ONE (08:10)
[2022-03-10] MEDS ORDERED: HEPARIN SODIUM 1,000 UN/ML (10ML VL) IV ONE (08:11)
[2022-03-10] MEDS ORDERED: niCARdipine 25 MG/10 ML VIAL ONE (08:15)
[2022-03-10] MEDS ORDERED: CLOPIDOGREL 75 MG TAB ONE (08:35)
[2022-03-10] MEDS ORDERED: CLOPIDOGREL 75 MG TAB PO ONE (08:37)
[2022-03-10] MEDS ORDERED: niCARdipine Syringe (1,000 mcg/10 mL) INTRACORON ONE (08:52)
[2022-03-10] MEDS ORDERED: niCARdipine 25 MG/10 ML VIAL INTRAARTER ONE (08:52)
[2022-03-10] MEDS ORDERED: NITROGLYCERIN 1000MCG/10ML SYRINGE INTRAARTER ONE (08:53)
[2022-03-10] MEDS ORDERED: NALOXONE 0.4 MG/ML 1 ML VIAL IVP PRN (09:10)
[2022-03-10] MEDS ORDERED: IOPAMIDOL-250 100ML BTL INTRAARTER ONE (09:11)
[2022-03-10] MEDS ORDERED: SODIUM CHLORIDE 0.9% 1,000 ML in EMPTY BAG 1 BAG IV SCH (09:15)
--- NOTE | 2022-03-10 09:30 | P.PCN ---
Date of Procedure: 03/10/22 Operative Findings: AN ABDOMINAL AORTOGRAM AND BILATERAL LOWER EXTREMITIES RUNOFF PERFORMING PHYSICIAN: Kaz Hu MD PROCEDURE PERFORMED: 1. An abdominal aortogram 2. Bilateral lower extremities runoff 3. Successful stenting of the left SFA using 7.0 x 18 mm Zilver B [place] drug-coated stent with an excellent angiographic results 4. Intravascular ultrasound of the left SFA 5. Atherectomy of the left SFA 6. Selective right common femoral artery angiogram 7. Ultrasound guided access of the right common femoral artery INDICATION: This is a 72-year-old gentleman with a past medical history significant for lower extremity peripheral arterial disease and prior angioplasty of the right SFA who was seen in the office recently where he was experiencing left leg intermittent claudication. He underwent an arterial duplex study and that revealed severe left SFA disease. He was brought today for angiogram and possible intervention COMPLICATION: None LEVEL OF SEDATION: Moderate was sedation length of moderate sedation Of 67 minutes APPROACH: Right common femoral artery PROCEDURE DESCRIPTION: After obtaining informed consent and explaining the procedure benefits, risks, and complications, the patient was brought to the cardiac cath laboratory technician. The right groin was prepped and draped in sterile fashion. The right common femoral artery was cannulated using micropuncture technique, under ultrasound guidance. A micropuncture wire was advanced, and the micropuncture sheath was advanced over the wire, then the micropuncture sheath was exchanged over an 0.35 wire into a 5-Swazi sheath dilator assembly then the wire and dilator were removed and sheath was flushed. We did an abdominal aortogram and bilateral lower extremities runoff using 5- [place] pigtail catheter using a power injection. The catheter was initially placed at the level of the renal arteries, and it was pulled into above the bifurcation of the aorta into right and left common iliac arteries. Subsequently I did intervene on the right SFA The procedure was completed and there was no complications. SELECTIVE PERIPHERAL ANGIOGRAM: The abdominal aorta: Calcified was mild disease on The common iliac arteries: Both appeared to have mild disease only The external iliac arteries: Both appeared to have mild disease on The internal iliac arteries: Both are patent The common femoral arteries: Both appeared to have mild disease on Superficial femoral arteries: The stent in the right SFA is patent. The left SFA has a tight lesion appears to be eccentric appears to be in the range of 90% Popliteal arteries: Have mild disease only Below the knees: There are 3 vessels run off below the knee bilaterally but please note that the arteries below the knee were not well-opacified VICE PRESIDENT NETWORK OF THE LEFT SFA: Anticoagulation was initiated using heparin with continuous ACT monitoring. The patient in the beginning was given a total of 6000 use of heparin and additional 2000 units of heparin given throughout the procedure. Subsequently I did exchange my 11 cm 6-Swazi sheath into 70 cm 6-Swazi sheath overall 35 stiff Glidewire. The left SFA was selected using a 5-Swazi rim catheter. Subsequently I did advanced a sheath over the wire and the catheter to the proximal left SFA. At that point I did wire the left SFA using 014 wire. After that I did intravascular ultrasound which showed a diameter of the SFA about 6 mm. Then I did atherectomy of the left SFA using the orbital atherectomy device and using 1.25 mm dee. After that balloon angioplasty was performed using 5 mm balloon. The following angiogram showed inadequate angiographic results and because of that I decided to stent the left SFA. I deployed a 7.0 x 80 mm Zilver B [place] drug-coated stent where the stent was positioned under fluoroscopy guidance and deployed under fluoroscopy guidance. Postdilatation was performed using a 6 mm balloon. The following angiogram showed excellent angiographic results and the procedure was completed without any complication After that I did exchange my 70 cm sheath into 11 cm sheath using an 035 stiff Glidewire. By the end I did selective right common femoral artery angiogram and the procedure was completed without any complication CONCLUSION: #1 an aortogram with runoff was performed #2 patent stent in the right SFA #3 critical disease involving the left SFA. I performed successful angioplasty of the left SFA POSTPROCEDURE MANAGEMENT: Dual antiplatelet therapy Aggressive cholesterol control Risk factors modification
--- NOTE | 2022-03-10 09:41 | IR ---
EXAMINATION TYPE: IR stent intravas non coronary DATE OF EXAM: 03/10/2022 COMPARISON: NONE HISTORY: Fluoroscopy time. Fluoroscopy was provided to the referring clinician.
[2022-03-10] MEDS ORDERED: ATROPINE SULFATE 0.1 MG/ML 10ML SYRINGE ONE (11:41)
[2022-03-10] MEDS: METOPROLOL TARTRATE 12.5 MG TAB PO SCH (19:57)
[2022-03-10] MEDS ORDERED: ATORVASTATIN 20 MG TAB PO SCH (21:00)
[2022-03-11 04:01] VITALS: PULSE 78
[2022-03-11 07:49] LABS: Basophils # (A) 0.1 k/uL (0-0.2); Basophils % (A) 1 %; Eosinophils # (A) 0.5 k/uL (0-0.7); Eosinophils % (A) 4 %; HCT 43.4 % (39.0-53.0); HGB 14.8 gm/dL (13.0-17.5); Lymphocytes # (A) 1.4 k/uL (1.0-4.8); Lymphocytes % (A) 10 %; MCH 31.1 pg (25.0-35.0); MCHC 34.2 g/dL (31.0-37.0); MCV 91.1 fL (80.0-100.0); Monocytes # (A) 0.6 k/uL (0-1.0); Monocytes % (A) 4 %; Neutrophils # (A) 11.2 k/uL (1.3-7.7); Neutrophils % (A) 80 %; Platelet Count 165 k/uL (150-450); RBC 4.77 m/uL (4.30-5.90); RDW 12.8 % (11.5-15.5); WBC 13.9 k/uL (3.8-10.6)
[2022-03-11 08:02] LABS: African American GFR (CKD) >90 (>60 ml/min/1.73 sqM); Anion Gap 7 mmol/L; Blood Urea Nitrogen 12 mg/dL (9-20); Calcium 8.9 mg/dL (8.4-10.2); Carbon Dioxide 31 mmol/L (22-30); Chloride 100 mmol/L (98-107); Glucose 120 mg/dL (74-99); Non-African American GFR(CKD) 87 (>60 ml/min/1.73 sqM); Potassium 4.1 mmol/L (3.5-5.1); Sodium 138 mmol/L (137-145)
[2022-03-11] MEDS: METOPROLOL TARTRATE 12.5 MG TAB PO SCH (08:26)
--- NOTE | 2022-03-11 08:53 | P.DS ---
Providers Attending physician: Kaz Hu Primary care physician: [facility] Course: The patient is a pleasant 72-year-old gentleman with a past medical history significant for lower extent his peripheral arterial disease and prior angioplasty of the right SFA was seen in the office recently for further evaluation of left leg intermittent claudication was abnormal Doppler showing increased peak systolic velocity at the left SFA. Subsequently he underwent an angiogram which revealed critical disease involving the left SFA. Then he underwent yesterday successful angioplasty and stenting of the left SFA. He was seen this morning. The right groin is soft and nontender and without any bruises. The left foot has a great dorsalis pedis pulse. The patient is going to be discharged home on antiplatelet and anticoagulation and I'll follow-up with the patient next week in the office Plan - Discharge Summary Discharge Rx Participant: No New Discharge Prescriptions: Continue Multivitamins, Thera [Multivitamin (formulary)] 1 tab PO DAILY Atorvastatin [Lipitor] 20 mg PO HS Metoprolol Tartrate [Lopressor] 12.5 mg PO BID Psyllium Husk (with Sugar) [Metamucil Fiber Thin] 2 gm PO DAILY Apixaban [Eliquis] 2.5 mg PO BID #180 tab Aspirin 81 mg PO DAILY Discharge Medication List Atorvastatin [Lipitor] 20 mg PO HS 05/12/20 [History] Multivitamins, Thera [Multivitamin (formulary)] 1 tab PO DAILY 05/12/20 [History] Metoprolol Tartrate [Lopressor] 12.5 mg PO BID 04/10/21 [History] Psyllium Husk (with Sugar) [Metamucil Fiber Thin] 2 gm PO DAILY 04/10/21 [History] Apixaban [Eliquis] 2.5 mg PO BID #180 tab 05/20/21 [Rx] Aspirin 81 mg PO DAILY 03/10/22 [History] Follow up Appointment(s)/Referral(s): Kaz Hu MD [STAFF PHYSICIAN] - 03/17/22 1:30 pm (Appointment is at Main Office) Patient Instructions/Handouts: *Surgery [facility] - After Heart Catheterization - Wet Roller Instructions
[2022-03-11 08:56] VITALS: BP 133/63; RESP 16; TEMP 98.8
[2022-03-11] MEDS ORDERED: PSYLLIUM HUSK 100% 6 GM PACKET PO SCH (09:00)
[2022-03-11] MEDS ORDERED: CLOPIDOGREL 75 MG TAB PO SCH (09:00)
[2022-03-11] MEDS ORDERED: MULTIVITAMINS, THERA 1 EACH TAB PO SCH (09:00)
[2022-03-11] MEDS ORDERED: ASPIRIN 81 MG PO SCH (09:00)
== END 2022-03-11 11:02 | disposition home or self-care (01) ==
LOC: CATHCVL 06:26 → 3SCARD 08:56 → CATHCVL 03-11 11:02
PROVIDERS: ATTEND Internal Medicine Interventional Cardiology
DX: I73.9 Peripheral vascular disease, unspecified (principal); I10 Essential (primary) hypertension; E78.5 Hyperlipidemia, unspecified; M19.90 Unspecified osteoarthritis, unspecified site; G45.9 Transient cerebral ischemic attack, unspecified; F41.9 Anxiety disorder, unspecified; F17.200 Nicotine dependence, unspecified, uncomplicated; Z90.89 Acquired absence of other organs; Z80.8 Family history of malignant neoplasm of other organs or systems
CPT/HCPCS: 37227; 75625; 75716; 37252; 80048; 85025; C1894 ×3; C1769 ×8; C1714; C1725; C1753; C1874; C1887; J2250; J2001; J1644; Q9966

== ENCOUNTER 2023-01-12 14:48 | Inpatient (IN) | payer OTHER, MEDICARE ==
[2023-01-12] MEDS ORDERED: ALBUTEROL NEBULIZED 2.5 MG/3 ML INHALATION STA (15:23)
[2023-01-12] MEDS ORDERED: cefTRIAXone IN SWFI 1,000 MG/10 ML SYRINGE IVP STA (15:23)
[2023-01-12] MEDS ORDERED: IPRATROPIUM 0.5 MG/2.5 ML NEBU INHALATION STA (15:23)
[2023-01-12] MEDS ORDERED: methylPREDNISolone SOD SUCCI 125 MG/2 ML VIAL IV STA (15:30)
--- NOTE | 2023-01-12 15:58 | XR ---
EXAMINATION TYPE: XR chest 2V DATE OF EXAM: 01/12/2023 COMPARISON: 06/14/2016 HISTORY: Shortness of breath TECHNIQUE: Frontal and lateral views of the chest are obtained. FINDINGS: Scattered senescent parenchymal changes noted. Hyperinflation compatible with COPD. Mild increased density within the infrahilar regions may reflect developing pneumonia. Correlate clin ically. Heart size is stable. Mediastinal structures are stable and grossly unremarkable. No evidence for hilar prominence. Degenerative changes dorsal spine. IMPRESSION: 1. Mild increased density within the infrahilar regions may reflect developing pneumonia. Correlate c linically.
[2023-01-12 16:01] LABS: Partial Thromboplastin Time 26.3 sec (22.0-30.0); Prothrombin Time 10.3 sec (9.0-12.0)
[2023-01-12 16:03] LABS: ALT 42 U/L (4-49); AST 36 U/L (17-59); African American GFR (CKD) 76 (>60 ml/min/1.73 sqM); Alkaline Phosphatase 112 U/L (38-126); Anion Gap 9 mmol/L; Blood Urea Nitrogen 20 mg/dL (9-20); Carbon Dioxide 28 mmol/L (22-30); Chloride 96 mmol/L (98-107); Glucose 89 mg/dL (74-99); Non-African American GFR(CKD) 66 (>60 ml/min/1.73 sqM); Potassium 4.6 mmol/L (3.5-5.1); Sodium 133 mmol/L (137-145); Total Bilirubin 1.1 mg/dL (0.2-1.3)
[2023-01-12 16:11] LABS: Basophils # (A) 0.1 k/uL (0-0.2); Basophils % (A) 0 %; Eosinophils # (A) 0.1 k/uL (0-0.7); Eosinophils % (A) 1 %; HCT 39.9 % (39.0-53.0); HGB 13.8 gm/dL (13.0-17.5); Lymphocytes % (A) 10 %; MCH 31.3 pg (25.0-35.0); MCHC 34.5 g/dL (31.0-37.0); MCV 90.6 fL (80.0-100.0); Mean Platelet Volume 8.1; Monocytes # (A) 1.3 k/uL (0-1.0); Monocytes % (A) 7 %; Neutrophils # (A) 15.6 k/uL (1.3-7.7); Neutrophils % (A) 80 %; Platelet Count 231 k/uL (150-450); RBC 4.41 m/uL (4.30-5.90); RDW 12.7 % (11.5-15.5); WBC 19.4 k/uL (3.8-10.6)
--- NOTE | 2023-01-12 19:19 | ED ---
General Adult HPI - General Chief complaint: Chest Pain Stated complaint: Sob,chest pain Time Seen by Provider: 01/12/23 15:05 Source: patient, RN notes reviewed, old records reviewed Mode of arrival: wheelchair Limitations: no limitations, physical limitation - History of Present Illness Initial comments: This is a 72-year-old male who presents emergency Department complaining of having difficulty breathing over week getting progressively worse. Patient states she is a smoker and does have a history she'll be per patient states he's been coughing more more lately it is definitely getting progressively worse per patient states as of yesterday he started having significant chest pain in the left side which continues at this time. Patient denies any fevers or chills but he did feel warm. Patient denies any abdominal pain. Patient denies any lightheadedness or dizziness. Patient denies any headache patient denies numbness weakness. Patient swelling to the legs or calf tenderness. - Related Data Home Medications Medication Instructions Recorded Confirmed Atorvastatin [Lipitor] 20 mg PO HS 05/12/20 01/12/23 Multivitamins, Thera [Multivitamin 1 tab PO DAILY 05/12/20 01/12/23 (formulary)] Aspirin EC [Ecotrin Low Dose] 81 mg PO DAILY 01/12/23 01/12/23 Diclofenac Sodium Gel [Voltaren 1 applic TOPICAL DAILY PRN 01/12/23 01/12/23 Gel] lisinopriL [Zestril] 5 mg PO DAILY 01/12/23 01/12/23 Previous Rx's Medication Instructions Recorded Apixaban [Eliquis] 2.5 mg PO BID #180 tab 05/20/21 Allergies Allergy/AdvReac Type Severity Reaction Status Date / Time No Known Allergies Allergy Verified 01/12/23 16:51 Review of Systems ROS Statement: Those systems with pertinent positive or pertinent negative responses have been documented in the HPI. ROS Other: All systems not noted in ROS Statement are negative. Past Medical History Past Medical History: Chest Pain / Angina, CVA/TIA, GERD/Reflux, Hearing Disor wendy / Deafness, Hyperlipidemia, Hypertension, Osteoarthritis (OA), Vascular Disorder Additional Past Medical History / Comment(s): blockages in legs, Rt leg locks up; has one kidney, TIA yrs ago-no residual effects, "small arteries heart," hearing aids, hemorrhoids, OA back/neck. bruises easy History of Any Multi-Drug Resistant Organisms: None Reported Past Surgical History: Appendectomy, Heart Catheterization Additional Past Surgical History / Comment(s): THROAT POLYPS REMOVED. abdominal aortogram, procedures for blockages sebastián legs/PTBA, Arthrectomy, has "stents - 1 lt leg, 6 Rt leg." Past Anesthesia/Blood Transfusion Reactions: No Reported Reaction Past Psychological History: Anxiety Smoking Status: Current every day smoker Past Alcohol Use History: None Reported Past Drug Use History: None Reported - Past Family History Brother(s) Family Medical History: Cancer Additional Family Medical History / Comment(s): 1 brother of cancer. 2nd brother remission of throat cancer General Exam - General Exam Comments Initial Comments: GENERAL: Patient is well-developed and well-nourished. Patient is nontoxic and well- hydrated and is in mild distress. ENT: Neck is soft and supple. No significant lymphadenopathy is noted. Oropharynx is clear. Moist mucous membranes. Neck has full range of motion without eliciting any pain. EYES: The sclera were anicteric and conjunctiva were pink and moist. Extraocular movements were intact and pupils were equal round and reactive to light. Eyelids were unremarkable. PULMONARY: Patient has some expiratory wheezing. CARDIOVASCULAR: There is a regular rate and rhythm without any murmurs gallops or rubs. ABDOMEN: Soft and nontender with normal bowel sounds. SKIN: Skin is clear with no lesions or rashes and otherwise unremarkable. NEUROLOGIC: Patient is alert and oriented x3. Cranial nerves II through XII are grossly intact. Motor and sensory are also intact. Normal speech, volume and content. Symmetrical smile. MUSCULOSKELETAL: Normal extremities with adequate strength and full range of motion. No lower extremity swelling or edema. No calf tenderness. LYMPHATICS: No significant lymphadenopathy is noted PSYCHIATRIC: Normal psychiatric evaluation. Limitations: no limitations, physical limitation Course Vital Signs 01/12/23 01/12/23 01/12/23 14:58 15:21 15:30 Temperature 99.9 F H Pulse Rate 92 87 92 Respiratory 20 14 9 L Rate Blood Pressure 108/67 111/68 O2 Sat by Pulse 96 96 Oximetry 01/12/23 01/12/23 01/12/23 15:52 16:00 16:07 Temperature Pulse Rate 86 84 89 Respiratory 26 H Rate Blood Pressure 121/63 O2 Sat by Pulse 100 Oximetry 01/12/23 01/12/23 01/12/23 16:35 17:30 18:00 Temperature 99.2 F Pulse Rate 98 102 H 105 H Respiratory 20 22 22 Rate Blood Pressure 122/60 117/67 111/47 O2 Sat by Pulse 98 91 L 93 L Oximetry 01/12/23 01/12/23 18:30 19:00 Temperature Pulse Rate 90 Respiratory 22 Rate Blood Pressure 120/65 111/77 O2 Sat by Pulse 95 91 L Oximetry Medical Decision Making - Medical Decision Making EKG was interpreted by myself shows a sinus rhythm at 90 bpm RI interval 115 QRS 144 QT interval 366 QTC is [address] segment elevation or depression. Patient has a right bundle branch block Was pt. sent in by a medical professional or institution (, PA, LIFE SCIENCE TECHNICAL OFFICER, urgent care, hospital, or shelter...) When possible be specific @ -No Did you speak to anyone other than the patient for history (EMS, parent, family, police, friend...)? What history was obtained from this source @ -No Did you review nursing and triage notes (agree or disagree)? Why? @ -I reviewed and agree with nursing and triage notes Were old charts reviewed (outside hosp., previous admission, EMS record, old EKG, old radiological studies, urgent care reports/EKG's, shelter records)? Report findings @ -No old charts were reviewed Differential Diagnosis (chest pain, altered mental status, abdominal pain women, abdominal pain men, vaginal bleeding, weakness, fever, dyspnea, syncope, headache, dizziness, GI bleed, back pain, seizure, CVA, palpatations, mental health, musculoskeletal)? @ -Differential Dyspnea: Coronary syndrome, arrhythmia, tamponade, asthma, COPD, pulmonary embolism, pneumonia, pneumothorax, pulmonary effusion, anaphylaxis, diabetic ketoacidosis, flailed chest, pulmonary contusion, diaphragmatic rupture, anemia, neuromuscular, this is not meant to be an all-inclusive list. EKG interpreted by me (3pts min.). @ -As above X-rays interpreted by me (1pt min.). @ -Chest x-ray shows right sided infiltrate in the infrahilar region CT interpreted by me (1pt min.). @ -None done U/S interpreted by me (1pt. min.). @ -None done What testing was considered but not performed or refused? (CT, X-rays, U/S, labs)? Why? @ -None What meds were considered but not given or refused? Why? @ -None Did you discuss the management of the patient with other professionals (professionals i.e. , PA, LIFE SCIENCE TECHNICAL OFFICER, lab, RT, psych nurse, social worker aide, rn er, teacher, evp and chief operating officer, pillowcase sewer)? Give summary @ -Poke with Dr. Pruitt he agreed to admit the patient Was smoking cessation discussed for >3mins.? @ -No Was critical care preformed (if so, how long)? @ -No Were there social determinants of health that impacted care today? How? (Homelessness, low income, unemployed, alcoholism, drug addiction, transport ation, low edu. Level, literacy, decrease access to med. care, residential, rehab)? @ -No Was there de-escalation of care discussed even if they declined (Discuss DNR or withdrawal of care, Hospice)? DNR status @ -No What co-morbidities impacted this encounter? (DM, HTN, Smoking, COPD, CAD, Cancer, CVA, ARF, Chemo, Hep., AIDS, mental health diagnosis, sleep apnea, morbid obesity)? @ -None Was patient admitted / discharged? Hospital course, mention meds given and route, prescriptions, significant lab abnormalities, going to OR and other pertinent info. @ -Patient received multiple breathing treatments in the emergency department as well as steroids and antibiotics. Patient will be admitted to Dr. Pruitt Undiagnosed new problem with uncertain prognosis? @ -No Drug Therapy requiring intensive monitoring for toxicity (Heparin, Nitro, Insulin, Cardizem)? @ -No Were any procedures done? @ -No Diagnosis/symptom? @ -Pneumonia Acute, or Chronic, or Acute on Chronic? @ -Acute Uncomplicated (without systemic symptoms) or Complicated (systemic symptoms)? @ -Complicated Side effects of treatment? @ -[o]Exacerbation, Progression, or Severe Exacerbation? @ -[o]Poses a threat to life or bodily function? How? (Chest pain, [place], [place], pneumonia, PE, COPD, DKA, ARF, appy, cholecystitis, CVA, Diverticulitis, Homicidal, Suicidal, threat to staff... and all critical care pts) @ -Yes this could lead to hypoxia and end organ dysfunction Diagnosis/symptom? @ -COPD exacerbation Acute, or Chronic, or Acute on Chronic? @ -Acute Uncomplicated (without systemic symptoms) or Complicated (systemic symptoms)? @ -Complicated Side effects of treatment? @ -none Exacerbation, Progression, or Severe Exacerbation] @ -no Poses a threat to life or bodily function? @ -Yes this could lead to hypoxia and end organ dysfunction Diagnosis/symptom? @ -Chest pain Acute, or Chronic, or Acute on Chronic? @ -Acute Uncomplicated (without systemic symptoms) or Complicated (systemic symptoms)? @ -Complicated Side effects of treatment? @ -none Exacerbation, Progression, or Severe Exacerbation] @ -no Poses a threat to life or bodily function? @ -Yes this could lead to end organ dysfunction - Lab Data Result diagrams: 01/12/23 15:28 01/12/23 15:28 Lab Results 01/12/23 01/12/23 01/12/23 Range/Units 15:28 15:28 15:28 WBC 19.4 H (3.8-10.6) k/uL RBC 4.41 (4.30-5.90) m/uL Hgb 13.8 (13.0-17.5) gm/dL Hct 39.9 (39.0-53.0) % MCV 90.6 (80.0-100.0) fL MCH 31.3 (25.0-35.0) pg MCHC 34.5 (31.0-37.0) g/dL RDW 12.7 (11.5-15.5) % Plt Count 231 (150-450) k/uL MPV 8.1 Neutrophils % 80 % Lymphocytes % 10 % Monocytes % 7 % Eosinophils % 1 % Basophils % 0 % Neutrophils # 15.6 H (1.3-7.7) k/uL Lymphocytes # 2.0 (1.0-4.8) k/uL Monocytes # 1.3 H (0-1.0) k/uL Eosinophils # 0.1 (0-0.7) k/uL Basophils # 0.1 (0-0.2) k/uL PT 10.3 (9.0-12.0) sec INR 1.0 (<1.2) APTT 26.3 (22.0-30.0) sec Sodium 133 L (137-145) mmol/L Potassium 4.6 (3.5-5.1) mmol/L Chloride 96 L (98-107) mmol/L Carbon Dioxide 28 (22-30) mmol/L Anion Gap 9 mmol/L BUN 20 (9-20) mg/dL Creatinine 1.11 (0.66-1.25) mg/dL Est GFR (CKD-EPI)AfAm 76 (>60 ml/min/1.73 sqM) Est GFR (CKD-EPI)NonAf 66 (>60 ml/min/1.73 sqM) Glucose 89 (74-99) mg/dL Plasma Lactic Acid Elliott (0.7-2.0) mmol/L Calcium 9.0 (8.4-10.2) mg/dL Total Bilirubin 1.1 (0.2-1.3) mg/dL AST 36 (17-59) U/L ALT 42 (4-49) U/L Alkaline Phosphatase 112 (38-126) U/L Troponin I (0.000-0.034) ng/mL Total Protein 7.0 (6.3-8.2) g/dL Albumin 4.0 (3.5-5.0) g/dL Influenza Type A (PCR) (Not Detectd) Influenza Type B (PCR) (Not Detectd) RSV (PCR) (Not Detectd) SARS-CoV-2 (PCR) (Not Detectd) 01/12/23 01/12/23 01/12/23 Range/Units 15:28 15:28 15:28 WBC (3.8-10.6) k/uL RBC (4.30-5.90) m/uL Hgb (13.0-17.5) gm/dL Hct (39.0-53.0) % MCV (80.0-100.0) fL MCH (25.0-35.0) pg MCHC (31.0-37.0) g/dL RDW (11.5-15.5) % Plt Count (150-450) k/uL MPV Neutrophils % % Lymphocytes % % Monocytes % % Eosinophils % % Basophils % % Neutrophils # (1.3-7.7) k/uL Lymphocytes # (1.0-4.8) k/uL Monocytes # (0-1.0) k/uL Eosinophils # (0-0.7) k/uL Basophils # (0-0.2) k/uL PT (9.0-12.0) sec INR (<1.2) APTT (22.0-30.0) sec Sodium (137-145) mmol/L Potassium (3.5-5.1) mmol/L Chloride (98-107) mmol/L Carbon Dioxide (22-30) mmol/L Anion Gap mmol/L BUN (9-20) mg/dL Creatinine (0.66-1.25) mg/dL Est GFR (CKD-EPI)AfAm (>60 ml/min/1.73 sqM) Est GFR (CKD-EPI)NonAf (>60 ml/min/1.73 sqM) Glucose (74-99) mg/dL Plasma Lactic Acid Elliott 0.8 (0.7-2.0) mmol/L Calcium (8.4-10.2) mg/dL Total Bilirubin (0.2-1.3) mg/dL AST (17-59) U/L ALT (4-49) U/L Alkaline Phosphatase (38-126) U/L Troponin I <0.012 (0.000-0.034) ng/mL Total Protein (6.3-8.2) g/dL Albumin (3.5-5.0) g/dL Influenza Type A (PCR) Not Detected (Not Detectd) Influenza Type B (PCR) Not Detected (Not Detectd) RSV (PCR) Not Detected (Not Detectd) SARS-CoV-2 (PCR) Not Detected (Not Detectd) Disposition Clinical Impression: Chest pain, Pneumonia, COPD exacerbation Disposition: ADMITTED IP TO THIS HOSP Referrals: [facility],Clinic [Primary Care Provider] - 1-2 days Time of Disposition: 19:30
[2023-01-12] MEDS ORDERED: IPRATROPIUM-ALBUTEROL 3 ML NEB INHALATION PRN (19:30)
[2023-01-12] MEDS ORDERED: AZITHROMYCIN 500 MG in SODIUM CHLORIDE 0.9% 250 ML IVPB STA (19:31)
[2023-01-12] MEDS ORDERED: PNEUMONIA PROTOCOL UTILIZED 1 EACH MISC PO PRN (19:31)
[2023-01-12] MEDS: IPRATROPIUM-ALBUTEROL 3 ML NEB INHALATION SCH (21:10)
[2023-01-12 22:16] VITALS: TEMP 96.3
[2023-01-13] MEDS: methylPREDNISolone SOD SUCCI 125 MG/2 ML VIAL IV SCH ×2 (01:21→06:13)
--- NOTE | 2023-01-13 02:22 | P.HPIM ---
History of Present Illness H&P Date: 01/12/23 Chief Complaint: SOB 72 year old male with hypertension , COPD patient coming in with 1 weeks progressive SOB, and productive coughing with creamy sputum that is getting worse over the past 3 days , with fever and chills over the past 2 days. he denies hemoptysis he denies any chest pain , orthopnea , leg edema , recent travel , or recent hospital stay , denies any known sick contacts he reports symptoms of URI for the past 1 month preceeding these symptoms review of systems Pertinent positives as noted in HPI. All other systems were reviewed and are negative on exam Constitutional: No acute distress, conversant, pleasant Eyes: Anicteric sclerae, moist conjunctiva, Pupils equal round reactive to light ENMT: NC/AT Oropharynx clear, no erythema, or exudates Neck: Supple, no masses, or JVD No carotid bruits No thyromegaly Lungs: Clear to auscultation Clear to percussion Normal respiratory effort, no accessory muscle use Cardiovascular: Heart regular in rate and rhythm, No murmurs, gallops, or rubs No peripheral edema Abdominal: Soft Nontender, no guarding, rebound or rigidity Abdomen moving with respiration Normoactive bowel sounds No hepatomegaly, No splenomegaly No palpable mass No abdominal wall hernia noted Skin: Normal temperature, tone, texture, turgor No induration No subcutaneous nodules No rash, lesions No ulcers Extremities: No digital cyanosis No clubbing Pedal pulses intact and symmetrical Radial pulses intact and symmetrical No calf tenderness Psychiatric: Alert and oriented to person, place and time Appropriate affect fair judgement Neuro Muscles Strength 5/5 in all 4 extremities Sensation to light touch grossly present throughout Cranial nerves II-XII grossly intact Lymphatics: no palpable cervical or supraclavicular lymph nodes Past Medical History Past Medical History: Chest Pain / Angina, CVA/TIA, GERD/Reflux, Hearing Disorder / Deafness, Hyperlipidemia, Hypertension, Osteoarthritis (OA), Vascular Disorder Additional Past Medical History / Comment(s): blockages in legs, Rt leg locks up; has one kidney, TIA yrs ago-no residual effects, "small arteries heart," hearing aids, hemorrhoids, OA back/neck. bruises easy History of Any Multi-Drug Resistant Organisms: None Reported Past Surgical History: Appendectomy, Heart Catheterization Additional Past Surgical History / Comment(s): THROAT POLYPS REMOVED. abdominal aortogram, procedures for blockages sebastián legs/PTBA, Arthrectomy, has "stents - 1 lt leg, 6 Rt leg." Past Anesthesia/Blood Transfusion Reactions: No Reported Reaction Past Psychological History: Anxiety Smoking Status: Current every day smoker Past Alcohol Use History: None Reported Additional Past Alcohol Use History / Comment(s): smoker on/off since age 17, up to 1 1/2 ppd, trying to quit, now smokes < 1 ppd. No alcohol since 1999 Past Drug Use History: None Reported - Past Family History Brother(s) Family Medical History: Cancer Additional Family Medical History / Comment(s): 1 brother of cancer. 2nd brother remission of throat cancer Medications and Allergies Home Medications Medication Instructions Recorded Confirmed Type Atorvastatin [Lipitor] 20 mg PO HS 05/12/20 01/12/23 History Multivitamins, Thera [Multivitamin 1 tab PO DAILY 05/12/20 01/12/23 History (formulary)] Apixaban [Eliquis] 2.5 mg PO BID #180 tab 05/20/21 01/12/23 Rx Aspirin EC [Ecotrin Low Dose] 81 mg PO DAILY 01/12/23 01/12/23 History Diclofenac Sodium Gel [Voltaren 1 applic TOPICAL DAILY PRN 01/12/23 01/12/23 History Gel] lisinopriL [Zestril] 5 mg PO DAILY 01/12/23 01/12/23 History Allergies Allergy/AdvReac Type Severity Reaction Status Date / Time No Known Allergies Allergy Verified 01/12/23 16:51 Physical Exam Vitals: Vital Signs Temp Pulse Pulse Resp BP BP Pulse Ox 01/12/23 23:52 17 01/12/23 23:43 75 17 107/52 91 L 01/12/23 22:15 96.3 F L 78 17 103/54 93 L 01/12/23 21:25 97.8 F 85 22 118/64 96 01/12/23 19:00 111/77 91 L 01/12/23 18:30 90 22 120/65 95 01/12/23 18:00 105 H 22 111/47 93 L 01/12/23 17:30 102 H 22 117/67 91 L 01/12/23 16:35 99.2 F 98 20 122/60 98 01/12/23 16:07 89 01/12/23 16:00 84 26 H 121/63 100 01/12/23 15:52 86 01/12/23 15:30 92 9 L 111/68 96 01/12/23 15:21 87 14 01/12/23 14:58 99.9 F H 92 20 108/67 96 Intake and Output 01/12/23 01/12/23 01/13/23 14:59 22:59 06:59 Output Total 200 Balance -200 Output: Urine 200 Other: Voiding Method Toilet Urinal # Voids 1 Weight 75.75 kg 75.75 kg Results CBC & Chem 7: 01/12/23 15:28 01/12/23 15:28 Labs: Abnormal Lab Results - Last 24 Hours (Table) 01/12/23 01/12/23 Range/Units 15:28 15:28 WBC 19.4 H (3.8-10.6) k/uL Neutrophils # 15.6 H (1.3-7.7) k/uL Monocytes # 1.3 H (0-1.0) k/uL Sodium 133 L (137-145) mmol/L Chloride 96 L (98-107) mmol/L Thrombosis Risk Factor Assmnt - Choose All That Apply Any of the Below Risk Factors Present?: No Each Risk Factor Represents 2 Points: Age 61-74 years Other congenital or acquired thrombophilia - If yes, enter type in comment: No Thrombosis Risk Factor Assessment Total Risk Factor Score: 2 Thrombosis Risk Factor Assessment Level: Low Risk Assessment and Plan Assessment: 72 year old male with hypertension , COPD, coming in for fever, cough and SOB, I discussed the case with ED doc and I accepted the admission for [place] with anticipated length of stay > 2 midnights sepsis 2/2 Community acquired pneumoina copd exacerbation secondary to above duonebs scheduled and PRN follow up cultures acute respiratory viral panel negative for covid , RSV and flu rocephine 2 gm daily IVPB azithromycin 500 mg daily tylenol for fever supplemental oxygen as needed CXR showing increase density infrahilar region WBC 19.9, tachycardia upon presentation Hgb 13.8 unremarkalb e BUN 20, cr 1.11 Na 133, K 4.6 unremarkable full code DVT PPX on eliquis
--- NOTE | 2023-01-13 07:03 | XR ---
EXAMINATION TYPE: XR chest 2V DATE OF EXAM: 01/13/2023 6:23 AM COMPARISON: Chest radiographs from 01/12/2023 TECHNIQUE: XR chest 2V Frontal and lateral views of the chest. CLINICAL INDICATION:Male, 72 years old with history of pneumonia; FINDINGS: Lungs/Pleura: There is no evidence of pleural effusion, focal consolidation, or pneumothorax. Simila r minimal density within the infrahilar regions bilaterally. Hyperinflation. Chronic senescent protoc ol change. Pulmonary vascularity: Unremarkable. Heart/mediastinum: Cardiomediastinal silhouette is unremarkable. Musculoskeletal: No acute osseous pathology. Levocurvature of the thoracic spine. IMPRESSION: COPD changes with similar minimal increased density within the bilateral infrahilar regions probably represents atelectasis/scarring versus less likely pneumonia.
[2023-01-13] MEDS ORDERED: lisinopriL 5 MG TAB PO SCH (09:00)
[2023-01-13] MEDS ORDERED: APIXABAN 2.5 MG TABLET PO SCH (09:00)
[2023-01-13] MEDS ORDERED: AZITHROMYCIN 500 MG TAB PO SCH (09:00)
[2023-01-13] MEDS ORDERED: ASPIRIN 81 MG PO SCH (09:00)
[2023-01-13] MEDS: IPRATROPIUM-ALBUTEROL 3 ML NEB INHALATION SCH ×2 (09:09→12:20)
[2023-01-13 09:21] VITALS: RESP 16
[2023-01-13 10:49] VITALS: BP 110/58; PULSE 74
--- NOTE | 2023-01-13 11:39 | P.DS ---
Providers Date of admission: 01/12/23 19:33 Expected date of discharge: 01/13/23 Attending physician: Cirilo Pruitt MD Primary care physician: [facility] Hospital Course: Discharge Diagnosis: Sepsis secondary to community-acquired pneumonia Acute COPD exacerbation Acute bronchitis Mild hyponatremia Nicotine dependence Hospital Course: 71-year-old male with history of hypertension, and nicotine dependence presenting with shortness of breath and productive cough. Patient was slightly tachycardic and 100s when he first arrived. WBC count elevated 19.4, rest of the blood work was otherwise unremarkable. Influenza A, B, RSV, COVID-19 was negative. Chest x-ray showed some bilateral infrahilar opacities, possibly pneumonia. Patient started on antibiotics. Remains on room air. Patient being discharged from oral steroids and antibiotics. Counseled regarding smoking cessation. Being discharged on LAMA. Follow-up with PCP, will likely need outpatient PFT. Patient seen and examined at bedside. Vital signs reviewed and stable. General: nontoxic, no distress, appears at stated age Derm: warm, dry Head: atraumatic, normocephalic, symmetric Eyes: EOMI, no lid lag, anicteric sclera Mouth: no lip lesion, mucus membranes moist Cardiovascular: S1S2 reg, no murmur Lungs: CTA bilateral, no rhonchi, no rales , no accessory muscle use Abdominal: soft, nontender to palpation, no guarding, no appreciable or ganomegaly Ext: no gross muscle atrophy, no edema, no contractures Neuro: CN II-XI grossly intact, no focal neuro deficits Psych: Alert, oriented, appropriate affect A total of 33 minutes of time were spent preparing this complex discharge summary. Patient was discharged on 01/13/23 at 11:35 . Patient Condition at Discharge: Stable Plan - Discharge Summary Discharge Rx Participant: Yes New Discharge Prescriptions: New Cefdinir 300 mg PO Q12HR #6 cap predniSONE [Deltasone] 40 mg PO DAILY #6 tab Tiotropium 18 Mcg/Puff [Spiriva] 1 puff INHALATION DAILY #90 each Azithromycin [Zithromax] 500 mg PO DAILY #1 tab Continue Multivitamins, Thera [Multivitamin (formulary)] 1 tab PO DAILY Atorvastatin [Lipitor] 20 mg PO HS Apixaban [Eliquis] 2.5 mg PO BID #180 tab lisinopriL [Zestril] 5 mg PO DAILY Aspirin EC [Ecotrin Low Dose] 81 mg PO DAILY Diclofenac Sodium Gel [Voltaren Gel] 1 applic TOPICAL DAILY PRN PRN Reason: hip pain Discharge Medication List Atorvastatin [Lipitor] 20 mg PO HS 05/12/20 [History] Multivitamins, Thera [Multivitamin (formulary)] 1 tab PO DAILY 05/12/20 [History] Apixaban [Eliquis] 2.5 mg PO BID #180 tab 05/20/21 [Rx] Aspirin EC [Ecotrin Low Dose] 81 mg PO DAILY 01/12/23 [History] Diclofenac Sodium Gel [Voltaren Gel] 1 applic TOPICAL DAILY PRN 01/12/23 [History] lisinopriL [Zestril] 5 mg PO DAILY 01/12/23 [History] Azithromycin [Zithromax] 500 mg PO DAILY #1 tab 01/13/23 [Rx] Cefdinir 300 mg PO Q12HR #6 cap 01/13/23 [Rx] Tiotropium 18 Mcg/Puff [Spiriva] 1 puff INHALATION DAILY #90 each 01/13/23 [Rx] predniSONE [Deltasone] 40 mg PO DAILY #6 tab 01/13/23 [Rx] Follow up Appointment(s)/Referral(s): [facility],Clinic [Primary Care Provider] - 1-2 days Patient Instructions/Handouts: Acute Bronchitis (GEN), COPD (Chronic Obstructive Pulmonary Disease) (DC), How to Stop Smoking (DC) Activity/Diet/Wound Care/Special Instructions: Please see your PCP. You will also need pulmonary function testing by your prim agata. Discharge Disposition: HOME SELF-CARE
--- NOTE | 2023-01-13 13:38 | CDI ---
Documentation Clarification Form Date: 01/13/2023 01:17:40 PM From: Liliana Miller RN CCDS Phone: [phone] Admit Date: 01/12/2023 07:33:00 PM Patient Name: Aaron Rodríguez Visit Number: [id number] Discharge Date: ATTENTION: The Clinical Documentation Specialists (CDI) and [facility] Coding Staff appreciate your assistance in clarifying documentation. Please respond to the clarification below the line at the bottom and electronically sign. The CDI & [facility] Coding staff will review the response and follow-up if needed. Please note: Queries are made part of the Legal Health Record. If you have any questions, please contact the author of this message via ITS. Dr. Ricardo Driver Sepsis is documented 01/12, H&P and 01/13, Discharge summary which may lack sufficient clinical evidence/support in the medical record. Additional clarification is requested. History/Risk Factors: 72-year-old male presents to the ED with difficulty breathing over one week progressively getting worse with chest pain. Medical history: Angina, GERD, COPD and every day smoker. 01/12, H&P. Clinical Indicators: VSS, 01/12: B/P 108/67; HR 92; Temp 99.9 F Oral; RR 20; SpO2 96% ra Wbc, 01/12: 19.4 CXR, 01/12: Mild increased density within the infrahilar regions. CXR, 810: COPD changes with similar minimal increased density within the bilateral infrahilar regions probably represents atelectasis/scarring versus less likely pneumonia. Treatment: 01/12 Ventolin Inhalation x 1; Rocephin IVP x 2; Atrovent Inhalation x1; Solumedrol IV X 1; Azithromycin IVPB x 1; Duoneb Inhalation x1; Solumedrol IV Q6Hr; Zithromax PO x 2 doses; Ceftriaxone sodium ivpb Q24HR one dose given. Please clarify if Sepsis is a valid diagnosis? [ x ] Yes, Sepsis is present as evidence by (additional clinical support): ___elevated HR, elevated WBC [ ] No, Sepsis is ruled out [ ] Other (please specify diagnosis) [ ] Unable to determine SIRS Criteria: 2 or more of the following may indicate SIRS Temperature < 96.8F (36C) or > 101.0F (38.3C) Heart Rate > 90 bpm Respiratory Rate > 20 breaths/min or PaCO2 < 32 mmHg White Blood Cell Count > 12,000 or < 4,000 cells/mm3 or > 10% bands (Template Last Revised: August 2020) RUBÉND
[2023-01-13] MEDS ORDERED: ATORVASTATIN 20 MG TAB PO SCH (21:00)
== END 2023-01-13 13:52 | disposition home or self-care (01) | DRG 871 ==
LOC: EC 14:48 → 3SCARD 19:33
PROVIDERS: ADMIT Internal Medicine; ATTEND Internal Medicine
DX: A41.9 Sepsis, unspecified organism (principal); J18.9 Pneumonia, unspecified organism; J44.1 Chronic obstructive pulmonary disease with (acute) exacerbation; J44.0 Chronic obstructive pulmonary disease with (acute) lower respiratory infection; E87.1 Hypo-osmolality and hyponatremia; F41.9 Anxiety disorder, unspecified; Z20.822 Contact with and (suspected) exposure to COVID-19; E78.5 Hyperlipidemia, unspecified; M19.90 Unspecified osteoarthritis, unspecified site; I45.10 Unspecified right bundle-branch block; J20.9 Acute bronchitis, unspecified; Z87.19 Personal history of other diseases of the digestive system; Z86.73 Personal history of transient ischemic attack (TIA), and cerebral infarction without residual deficits; Z86.79 Personal history of other diseases of the circulatory system; K21.9 Gastro-esophageal reflux disease without esophagitis; F17.210 Nicotine dependence, cigarettes, uncomplicated; H91.90 Unspecified hearing loss, unspecified ear; Z79.01 Long term (current) use of anticoagulants; Z79.82 Long term (current) use of aspirin; Z79.899 Other long term (current) drug therapy
CPT/HCPCS: 36415; 71046; 80053; 83605; 84484; 85025; 85610; 85730; 87040; 87636; 93005; 94640; 94760; 96365; 96366; 96375; 99285

== ENCOUNTER → 2023-03-29 | Outpatient (CLI) | payer OTHER | LOC: CPPFTMAIN 10:06 | DX: J44.9 Chronic obstructive pulmonary disease, unspecified (principal); F17.200 Nicotine dependence, unspecified, uncomplicated; Z79.899 Other long term (current) drug therapy | CPT/HCPCS: 94060; 94726; 94729 ==

== ENCOUNTER 2023-09-22 07:45 | Day surgery (SDC) | payer OTHER ==
[~2023-09-22 07:45] MED LIST changes: +ALPRAZolam 0.5 MG TAB PO PRN; -ASPIRIN 325 MG TAB PO PRN; +ASPIRIN 325 MG TAB PO STA; +NITROGLYCERIN SL TABS 0.4 MG TAB SUBLINGUAL PRN; -SODIUM CHLORIDE 0.9% 1,000 ML in EMPTY BAG 1 BAG IV ONE; +SODIUM CHLORIDE 0.9% 1,000 ML in EMPTY BAG 1 BAG IV SCH
[2023-09-22] MEDS: SODIUM CHLORIDE 0.9% 1,000 ML IV ONE (08:05)
[2023-09-22 08:28] VITALS: RESP 16; TEMP 98.5
[2023-09-22] MEDS ORDERED: fentaNYL (PF) 50 MCG/ML 2 ML AMP ONE (08:39)
[2023-09-22] MEDS ORDERED: VERAPAMIL 2.5 MG/ML 2 ML AMP ONE (08:39)
[2023-09-22] MEDS ORDERED: HEPARIN SODIUM 1,000 UN/ML (10ML VL) ONE (08:39)
[2023-09-22] MEDS ORDERED: LIDOCAINE 1% INJ 10MG/ML (20 ML MDV) ONE (08:39)
[2023-09-22] MEDS: LIDOCAINE 1% INJ 10MG/ML (20 ML MDV) SQ ONE (09:32)
[2023-09-22] MEDS: VERAPAMIL SYRINGE (5 MG/10 ML) INTRAARTER ONE (09:37)
[2023-09-22] MEDS: fentaNYL (PF) 50 MCG/ML 2 ML AMP IVP ONE (09:37)
[2023-09-22] MEDS: MIDAZOLAM 2 MG/2 ML VIAL IVP ONE (09:38)
[2023-09-22] MEDS: HEPARIN SODIUM 1,000 UN/ML (10ML VL) IVP ONE (09:38)
[2023-09-22] MEDS: IOPAMIDOL-370 100ML BTL INJ ONE (09:48)
[2023-09-22] MEDS ORDERED: RX INFO: IV CONTRAST WAS GIVEN 1 EACH MISC MISCELLANE PRN (09:50)
--- NOTE | 2023-09-22 09:53 | P.PCN ---
Date of Procedure: 09/22/23 Operative Findings: CARDIAC CATHETERIZATION PERFORMING PHYSICIAN: Kaz Hu MD, RPVI PROCEDURE PERFORMED: 1. Selective right and left coronary angiogram 2. Left heart catheterization 3. 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 Local anesthesia was performed using lidocaine subcutaneously. The right radial artery was cannulated using Seldinger technique, the guidewire passed easily, following that we advanced a 5-[place] sheath dilator assembly, the wire and dilator were removed and sheath was flushed. Following that, 2 mg of verapamil along with 5000 unit heparin were given. Selective right and left coronary angiogram using a 6-[place] JR4 and JL 3.5 catheters. Following that we did left heart catheterization using the JR4 catheter The procedure was completed there was no complication. SELECTIVE CORONARY ANGIOGRAM: The right coronary artery: Large-caliber vessel and a dominant vessel with mild disease only Left main: Has mild disease The left circumflex: Medium caliber vessel nondominant vessel appears to be angiographically normal The ramus intermedius: Large-caliber vessel with mild to moderate disease only The left anterior descending artery: Large-caliber vessel with mild disease only and gives rise into multiple diagonal branches HEMODYNAMICS: LVEDP was 15 mmHg with no significant gradient across aortic valve CONCLUSION: 1. Mild to moderate nonobstructive coronary artery disease 2. Normal left-sided filling pressure POSTPROCEDURE MANAGEMENT: Medical treatment
[2023-09-22] MEDS: SODIUM CHLORIDE 0.9% 1,000 ML IV SCH (10:00)
[2023-09-22 13:40] VITALS: BP 103/52; PULSE 70
== END 2023-09-22 14:22 | disposition home or self-care (01) ==
LOC: CATHCVL 07:45
PROVIDERS: ATTEND Internal Medicine Interventional Cardiology
DX: I25.10 Atherosclerotic heart disease of native coronary artery without angina pectoris (principal); I10 Essential (primary) hypertension; E78.5 Hyperlipidemia, unspecified; I73.9 Peripheral vascular disease, unspecified; F17.210 Nicotine dependence, cigarettes, uncomplicated; Z79.01 Long term (current) use of anticoagulants; Z79.899 Other long term (current) drug therapy; Z79.82 Long term (current) use of aspirin
CPT/HCPCS: 93458; C1769; C1894; J2250; J2001; J3010; J1644; Q9967

== ENCOUNTER → 2024-10-25 | Outpatient (CLI) | payer OTHER ==
--- NOTE | 2024-10-25 15:43 | MR ---
INDICATION: Patient age:Male; 74 years old; Reason for study: R51.9 HEADACHE; PHH. COMPARISON: MR brain 06/05/2019. TECHNIQUE: Multi planar, multi sequence imaging was performed through the brain. The patient was then given 8 cc of Gadobutrol intravenously and multi planar, T1 fat-saturation images were obtained. FINDINGS: The palomares-white junctions, ventricular system, basal cisterns appear unremarkable for level of cerebra l atrophy. Age-appropriate cerebral volume loss. Diffusion-weighted imaging shows no evidence of rest ricted diffusion to suggest acute/subacute infarct. Intracranial arterial flow voids are maintained. Midline structures show no abnormality. Slight progression of patchy and confluent areas of high T2/F LAIR signal intensity are seen within the periventricular and subcortical white matter. The susceptib ility weighted images demonstrate a couple foci of blooming artifact within the bilateral frontoparie michelle regions consistent with prior hemosiderin deposition. After administration of gadolinium, no abno rmal enhancement is seen. The bone marrow signal is within normal limits. The globes are unremarkable. Mild mucosal thickening of the ethmoid sinuses. Nasal septal deviation to the right. IMPRESSION: 1. No evidence of intracranial mass, acute/subacute infarct, or abnormal enhancement. 2. Slight progression of advanced nonspecific white matter changes from prior MR, likely related to s mall vessel ischemic disease. [facility], , 10/25/2024 3:41 PM
== END | disposition home or self-care (01) ==
LOC: RADMRIMAIN 14:27
PROVIDERS: ATTEND Family Medicine
DX: R90.82 White matter disease, unspecified (principal); R51.9 Headache, unspecified
CPT/HCPCS: 70553; A9585